=== PATIENT | male | born 1945 | race Caucasian/White ===

== ENCOUNTER 2017-07-14 20:07 | Emergency (ER) | payer MEDICARE, SELFPAY ==
--- NOTE | 2017-07-14 20:28 | XR_ITS ---
XR tibia fibula LT 2V Ordering Physician: Bill Lora Patient Age: 71 years: Male HISTORY: ITS.REASON: FALL TECHNIQUE: AP and lateral left lower leg COMPARISON :Left ankle from today . No previous studies otherwise prior to today FINDINGS The lateral displacement displacement of distal lateral and medial malleolus fracture components again noted at the ankle. Lateral displacement talus. Oblique fracture distal fibula with a transverse fracture base of medial malleolus. Spurring at the calcaneus again noted with progression of the spurring at the Achilles tendon The tibial shaft and fibular shaft appear intact. There is some mild irregularity at the tibial tubercle which likely reflects an old changes at the tendon insertion. Scattered vascular clips at the posterior, medial calf likely reflecting previous vein harvesting procedure. 2 views of the knee are included and unremarkable IMPRESSION The fractures at the ankle are again noted as previously discussed. Otherwise remainder the tibia and fibula are intact with no acute findings.
--- NOTE | 2017-07-14 20:28 | XR_ITS ---
XR foot LT min 3V, XR ankle LT min 3V Patient Age: 71 years: Male HISTORY: ITS.REASON: FALLpain swelling ankle fracture TECHNIQUE: Left foot 3 views left foot Left ankle 3 views left ankle COMPARISON :None ===== LEFT ANKLE 3 views. Lateral malleolus fracture..: Oblique fracture is seen at the distal fibula. It extends through the metaphysis into the ankle joint.L. There is 6 mm lateral displacement of the distal fibular fracture fragment, with lateral displacement of the talus at the ankle mortise, accompanied this lateral malleolar fracture fragment. Slight widening the medial joint space. Lateral projection demonstrates the oblique nature of this distal fibular fracture as it passing inferiorly exiting the anterior aspect of the distal fibula on the lateral view. But Medial malleolus fracture.: .. Transverse slightly oblique fracture through base of medial malleolus, with over 5 mm lateral displacement of this fracture fragment noted as well. On AP view. Slight irregularity at the posterior malleolus compared to previous os calcis exam March 2010which could reflect a very minor mild nondisplaced fracture here posterior margin of tibia. Prominent soft tissue swelling about the ankle both medial & lateral. The dome of the talus remains intact. IMPRESSION left ankle: 1. Bimalleolar fracture . .. Lateral subluxation of talus and ankle mortise due to this Eversion injury.. ... The distal fragment at lateral malleolus as well as medial malleolus are displaced laterally, & accompanied the talus laterally.. 2. Question Possible minor trimalleolar component to this ankle fracture Question, suggest a minor undisplaced fracture along posterior margin of the posterior malleolus ====== LEFT FOOT 3 VIEWS.----- tarsals and metatarsals intact. No fracture at the mid or forefoot . Toes intact. Bones well mineralized. Minor hypertrophic changes at the medial aspect first MTP joint. Plantar calcaneal spur 10 mm length. Irregular spurring & calcification has progressed since 2009 at the at the insertion Achilles tendon . IMPRESSION left foot: Ankle fractures again noted as discussed above. Otherwise left Mid, & forefoot appear intact.. Progressive calcification is present insertion of Achilles tendon since 2009
[2017-07-14 20:32] VITALS: BP 149/72; PULSE 71; RESP 20; TEMP 36.5; O2SAT 97; BMI 34.4
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
[2017-07-14 21:22] VITALS: BP 135/78; PULSE 75; RESP 18; TEMP 36.6
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
== END 2017-07-14 21:29 | disposition home or self-care (01) ==
LOC: ER 20:20 → UTC 20:20
PROVIDERS: Emergency Provider Nurse Practitioner Family; PCP Internal Medicine
DX: S82.842A Displaced bimalleolar fracture of left lower leg, initial encounter for closed fracture (principal); S82.891A Other fracture of right lower leg, initial encounter for closed fracture; W00.0XXA Fall on same level due to ice and snow, initial encounter; Y92.89 Other specified places as the place of occurrence of the external cause; I25.10 Atherosclerotic heart disease of native coronary artery without angina pectoris; E78.5 Hyperlipidemia, unspecified; I10 Essential (primary) hypertension; Z95.1 Presence of aortocoronary bypass graft
CPT/HCPCS: 29515 ×2; G0463; 73590; 73610; 73630; 99203

== ENCOUNTER → 2017-07-16 10:57 | Outpatient (CLI) | payer MEDICARE, SELFPAY ==
[2017-07-16 11:19] LABS: Basophils % 0.3 % (0.1-2.0); Eosinophils # 0.1 K/mm3 (0.0-0.4); Eosinophils % 1.5 % (0.1-12.0); Hematocrit 40.3 % (42.0-52.0); Hemoglobin 12.8 g/dL (14.1-18.0); Lymphocytes # 1.2 K/mm3 (0.7-4.5); Lymphocytes % 14.3 K/mm3 (10-50); Mean Corpuscular HGB Conc 31.8 g/dL (31.8-35.4); Mean Corpuscular Hemoglobin 27.5 pg (27.0-31.2); Mean Corpuscular Volume 86.6 fl (80-94); Mean Platelet Volume 7.9 fl (7.4-10.4); Monocytes # 0.9 K/mm3 (0.1-1.0); Monocytes % 10.1 % (1.7-9.3); Neutrophils # 6.3 K/mm3 (1.8-7.8); Neutrophils % 73.7 % (37.0-80.0); Platelet Count 199 K/mm3 (142-424); Red Blood Count 4.65 M/mm3 (4.60-6.20); Red Cell Distribution Width 13.2 % (11.5-17.5); White Blood Count 8.5 K/mm3 (4.8-10.8)
--- NOTE | 2017-07-16 11:20 | XR_ITS ---
XR chest 2V HISTORY: Shortness breath ITS.REASON: PRIOR HEART CATH PT,SHORT OF BREATH,PRE-OP ORDERING PHYSICIAN: Bayron Chowdary MD PATIENT AGE: 71 years COMPARISON: None available FINDINGS: Prior CABG. Normal heart size. Old granulomatous disease. No lobar consolidation or collapse. No evidence of CHF. 5 mm nodular opacity is noted in the left lung base possibly related to a nipple shadow and may be confirmed with follow-up. No acute bony anomalies. IMPRESSION: Prior CABG, no acute finding. Possible nipple shadow left lung base versus nodule. Follow-up recommended
[2017-07-16 12:36] LABS: Anion Gap 12.6 mEq/L (5-15); Blood Urea Nitrogen 9 mg/dL (7-18); Carbon Dioxide 27 mmol/L (21.0-32.0); Chloride 107 mmol/L (98-107); Creatinine,Serum 0.73 mg/dL (0.70-1.30); Estimated Glomerular Filt Rate 106 ml/min (>60); GFR (African American) 128 ML/MIN (>60); Glucose 196 mg/dL (74-106); Potassium 3.6 mmoL/L (3.5-5.1); Sodium 143 mmol/L (136-145)
== END ==
PROVIDERS: PCP Internal Medicine; Visit Provider Orthopaedic Surgery
DX: S82.891A Other fracture of right lower leg, initial encounter for closed fracture (principal); S82.892A Other fracture of left lower leg, initial encounter for closed fracture; Z01.818 Encounter for other preprocedural examination
CPT/HCPCS: 36415; 71046; 80048; 85025; 93005

== ENCOUNTER 2017-07-22 08:19 | Observation (INO) | payer MEDICARE, SELFPAY ==
[2017-07-16 12:15] VITALS: BMI 33.7
[2017-07-22] VITALS (25 sets, daily range): BP systolic 113–144; BP diastolic 55–84; PULSE 73–86; RESP 18–20; TEMP 36.7–43; O2SAT 94–99; BMI 33.7
--- NOTE | 2017-07-22 | XR_ITS ---
XR ankle LT 2V HISTORY: ITS.REASON: ORIF OF LT ANKLE ORDERING PHYSICIAN: Bayron Chowdary MD PATIENT AGE: 71 years Fluoroscopy time: 57 seconds COMPARISON: None FINDINGS: Multiple images submitted the C-arm shows interval placement of fibular bone plate and 2 screws within the medial malleolus are fracture fragment with good alignment of the orthopedic hardware and fracture fragments. IMPRESSION: Status post ORIF bimalleolar fracture with good alignment
[2017-07-22 09:05] LABS: POC Glucose,Bedside 190 mg/dL
--- NOTE | 2017-07-22 09:14 | P.PN_ITS ---
[facility] Anesthesia Checklist - Patient Identification Patient Identification: Arm Band, Verbal (Name & ) - Structural Data Admitted From: Home Planned Operative Procedure/s: orif left ankle Consent for Planned Operative Procedure(s) Verified: Yes Verified Documents: Surgical Consent - NPO Status Verified Time NPO: 00:00 - Chart Verification Results Verified: CBC, BMP - Additional verifications Patient : No Anesthesia Reactions: No Hx Blood Transfusions: No Blood Transfusion Reaction: No Cephalosporin Allergy: No Previous Colonoscopy: No - Cardiovascular Assessment Heart Sounds: S1 & S2 Pulse Strength: Baseline Pulse Rhythm: Regular Peripheral Edema: No - Airway Assessment C-Spine Mobility Assessed: Yes TMJ Mobility Assessed: Yes Dentition: Edentulous - Neurological Assessment Level of Consciousness: Awake, Alert, Appropriate Hx Seizures: No Numbness or tingling in extremities: No - Anesthesia Plan Anesthesia Risk discussed: Yes ASA Class: III Anesthesia Type: General [facility] Anesthesia HX I have reviewed the patient's past medical history: Yes Medical History: Reports:: Coronary Artery Disease, Diabetes Mellitus Type 2 ( on meds), Gastroesophageal Reflux Disease(GERD), Hyperlipidemia, Hypertension Denies:: Cancer, Diabetes Mellitus Type 1, Internal Pacemaker, MRSA, Seizures Other Medical History: Denies: Blood Transfusion Reaction Laterality Cases: Bilateral: Other Other Surgeries: Yes: Other (cabg x2 2004). No: Pacemaker Amputation: No Fractures: No *Family Hx:: Cancer, Heart Attack, Hyperlipidemia, Hypertension
--- NOTE | 2017-07-22 12:33 | P.PN_ITS ---
[facility] Anesthesia Record Part I Intake, IV Amount: 700 Estimated blood loss (mL): 25 Urine output (mL): 0 Blood Products used (#): none Blood Pressure: 131/79 SaO2: 94 Pulse Rate: 80 Respiratory Rate: 18 Temperature: 98.0 F Patient is:: Drowsy, Stable Stable to PACU at:: 12:26
--- NOTE | 2017-07-22 12:35 | P.PN_ITS ---
[facility] Anesthesia Record Part II Discharge Time: 12:56 Destination: Medical Surgical Department PACU nurse assessment reviewed?: Yes Patient Condition:: Good Anesthesia Complications:: None
--- NOTE | 2017-07-22 12:53 | XR_ITS ---
XR ankle LT min 3V HISTORY: Follow-up ORIF/fracture ITS.REASON: Post op ORDERING PHYSICIAN: Bayron Chowdary MD PATIENT AGE: 71 years COMPARISON: 2 4 18 FINDINGS: Study is obtained through a cast. There is been interval ORIF of the distal fibular fracture and the medial malleolus fracture with good alignment of the fracture fragments. A bone plate is present at the distal fibula with multiple screws. 2 screws stabilize a medial malleolus fracture. IMPRESSION: Good alignment status post ORIF distal fibular and medial malleolus fracture
[2017-07-23] VITALS: BP 123/61; PULSE 76; RESP 18; TEMP 36.9; O2SAT 96
--- NOTE | 2017-07-23 03:32 | PC.NURSE ---
LAYING IN BED RESTING WITH SPOUSE AT SIDE. HAS REST WELL MOST OF SHIFT. LEFT LEG ELEVATED ON 2 PILLOWS. HAS BEEN UP TO BEDSIDE TOILET. USED WALKER TO HELP STEADY. TOLERATED WELL. HAS HAD PAIN MEDICATION 1 TIME. RESP EVEN AND NONLABORED. LUNGS ARE CLEAR. BOWEL SOUNDS ACTIVE X 4. IV IS PATENT. AFEBRILE, BED LOCKED IN LOW POSITION, SIDERALES UP X 2, CALL [place] WITHIN REACH. WILL CONTINUE TO MONITOR.
[2017-07-23 04:00] VITALS: BP 129/68; PULSE 70; RESP 18; TEMP 36.9; O2SAT 93
--- NOTE | 2017-07-23 07:28 | P.CONPHA_ITS ---
[facility] Pharmacy VTE Monitoring - Patient Demographics Admission date: 07/22/17 Report Date: 07/23/17 Time: 07:27 Allergies/Adverse Reactions: Patient Allergies venom-wasp Allergy (Unknown, Verified 07/22/17 15:42) ALLERGY Bumble Bee Allergy (Mild, Uncoded 07/22/17 15:42) ALLERGY Height: 1.78 m Weight: 106.594 kg - VTE Risk Was VTE Risk Assessment Performed: Yes VTE Score: 5 VTE Risk Level: Low Risk Clinical Trial Participant: No - Prophylaxis VTE Prophylaxis Ordered?: Yes Types of VTE Prophylaxis: TEDS Knee High
[2017-07-23 08:00] VITALS: BP 100/50; PULSE 86; RESP 18; TEMP 36.8; O2SAT 94
--- NOTE | 2017-07-23 08:17 | PC.NURSE ---
tube feed given to pt. residual checked and had 20cc of gastric content. pt was able to feed self with nurse measuring out the feed and water for him.
--- NOTE | 2017-07-23 09:00 | HMH.PTEV ---
Physical Therapy Evaluation Rehab PT IP Evaluation Start: 07/22/17 13:11 Freq: ONCE Status: Active Protocol: Document 07/23/17 08:56 JENN (Rec: 07/23/17 09:00 JENN [id number]) Subjective/History History History This is the initial Physical THerapy evaluation for Mima Kumar. Pt is a 71 y/o male admitted to [facility] s/p L ankle fx w/ ORIF. Subjective Subjective Pt rpeorts no complaints, wishes to return home Rehab PT IP Eval Objective Appearance Patient Behavior Appropriate Patient Orientation Person Place Time Month Difficulty following instructions none Speech Pattern Clear Ambulation Patient Able to Ambulate Yes Ambulation Observation IP General Gait Pattern Observation Decrease Weight Bear (L) Ambulation Distance (feet) 3 Ambulation Assistive Device Rolling Walker Balance Ability to Arise Able, uses arms to help Sitting Balance Steady, safe Standing Balance Steady, wide stance Dynamic Sitting Balance Ability Normal Dynamic Standing Balance Ability Fair Transfers Bed Transfer Ability Independent Chair Transfer Ability Supervision/Stand by Sit to Stand Bed Transfer Ability Supervision/Stand by Sit to Stand Chair Transfer Ability Supervision/Stand by ROM All Extremities PT ROM Status WFL Abnormal ROM Comment L ankle casted MMT All Extremities PT MMT WFL Abnormal MMT Grade unable to test L ankle/foot Rehab PT IP prob,goals,plan Problems Date of Evaluation: 07/23/17 PT IP Problems Self care Rehab Potential Rehab Potential Innapropriate for Skilled Therapy Discharge Plan PT Discharge Plan Pt to return home s/p LOS G -code Required Yes Eval Complexity Eval Charge Codes 12877 - Low Complexity G Codes PT Current Status Mobility PT Current Status Modifier CJ-At least 20% but less than 40% impaired, limited or restricted PT Goal Status Mobility PT Goal Status Modifer CJ-At least 20% but less than 40% impaired, limited or restricted PHYSICIAN CERTIFICATION: I certify the specified therapy services for Mima Kumar JR are required, authorized, and reviewed every 30 days.
--- NOTE | 2017-07-23 09:21 | HMH.DCSUM ---
General - General Admission date: 07/22/17 Discharge date: 07/23/17 HPI HPI: The patient is a 71-year-old gentleman who incurred a trimalleolar ankle fracture or full days ago. He is taken to the operating room for open reduction internal fixation of both the medial and lateral malleolus. The posterior malleolar fragment was small and reduced appropriately and was not felt to need fixation. The patient's postoperative course was unremarkable. At the time of discharge, he was partaking of regular diet without difficulty and he was seen by physical therapy and instructed in touchdown weightbearing technique. At time of discharge, the patient was adequately controlled on oral analgesics. He was able to demonstrate appropriate touchdown weightbearing technique and understood the need to elevate his foot. He is to resume his normal preoperative medications. He has been given a prescription for Lortab 5/325 #30. He may take 1 or 2 tablets every 4-6 hours as needed for pain. We will plan on seeing him back in approximately 2 weeks for x-rays, staple removal, and placement in a short leg cast. Explained the expected postoperative course to the patient. Both he and his demonstrate excellent understanding. Objective Vital signs: Temp Pulse Resp BP Pulse Ox 98.3 F 86 18 100/50 94 L 07/23/17 08:00 07/23/17 08:00 07/23/17 08:00 07/23/17 08:00 07/23/17 08:00 Narrative: This is sensate to light touch in all toes. Capillary refill less than 2 seconds. Pedal pulses not able to be assessed secondary to access. No complications evident. Postoperative x-rays reviewed by me personally and show appropriate hardware position and fixation of the fracture. Hospital Course Hospital Course: Satisfactory. Please see narrative Meds Home Medications Medication Instructions Recorded Confirmed Type Atorvastatin Calcium [Atorvastatin 80 mg PO DAILY 07/14/17 07/22/17 History 80mg Tab] Glimepiride [Amaryl 2mg tablet] 2 mg PO DAILY 07/14/17 07/22/17 History Ramipril [Altace 5mg capsule] 5 mg PO DAILY 07/14/17 07/22/17 History aspirin 325 mg tablet 650 mg PO DAILY tab 07/16/17 07/22/17 History linagliptin 5 mg tablet 5 mg PO DAILY tab 07/16/17 07/22/17 History Esomeprazole Magnesium [Nexium 20 mg PO DAILY 07/22/17 07/22/17 History 24Hr] Metoprolol Tartrate [Lopressor 25 mg PO BID 07/22/17 07/22/17 History 25mg tablet] Allergies Allergy/AdvReac Type Severity Reaction Status Date / Time venom-wasp Allergy Unknown ALLERGY Verified 07/22/17 15:42 Bumble Bee Allergy Mild ALLERGY Uncoded 07/22/17 15:42 Discharge Plan - Patient Discharge Instructions ACTIVITY: Continue current activity DIET: continue same diet Patient Instructions: DI for Ankle Fracture, DI for Surgical Site Infection - Follow up Plan Follow up with: Bayron Chowdary MD [Staff Physician] - 2 weeks Disposition: Home, Self-Shelter Medications: Home Medications Medication Instructions Recorded Confirmed Type Atorvastatin Calcium [Atorvastatin 80 mg PO DAILY 07/14/17 07/22/17 History 80mg Tab] Glimepiride [Amaryl 2mg tablet] 2 mg PO DAILY 07/14/17 07/22/17 History Ramipril [Altace 5mg capsule] 5 mg PO DAILY 07/14/17 07/22/17 History aspirin 325 mg tablet 650 mg PO DAILY tab 07/16/17 07/22/17 History linagliptin 5 mg tablet 5 mg PO DAILY tab 07/16/17 07/22/17 History Esomeprazole Magnesium [Nexium 20 mg PO DAILY 07/22/17 07/22/17 History 24Hr] Metoprolol Tartrate [Lopressor 25 mg PO BID 07/22/17 07/22/17 History 25mg tablet] Prescriptions/Medication Reconciliation: New Hydrocod/Acet 5/325 mg [[place] 5/325mg tablet] 1 - 2 tab PO Q4HP PRN #30 tab PRN Reason: Severe Pain Continue linagliptin 5 mg tablet 5 mg PO DAILY tab aspirin 325 mg tablet 650 mg PO DAILY tab Glimepiride [Amaryl 2mg tablet] 2 mg PO DAILY Atorvastatin Calcium [Atorvastatin 80mg Tab] 80 mg PO DAILY Eso
--- NOTE | 2017-07-23 09:27 | P.DS_ITS ---
General - General Admission date: 07/22/17 Discharge date: 07/23/17 HPI HPI: The patient is a 71-year-old gentleman who incurred a trimalleolar ankle fracture or full days ago. He is taken to the operating room for open reduction internal fixation of both the medial and lateral malleolus. The posterior malleolar fragment was small and reduced appropriately and was not felt to need fixation. The patient's postoperative course was unremarkable. At the time of discharge, he was partaking of regular diet without difficulty and he was seen by physical therapy and instructed in touchdown weightbearing technique. At time of discharge, the patient was adequately controlled on oral analgesics. He was able to demonstrate appropriate touchdown weightbearing technique and understood the need to elevate his foot. He is to resume his normal preoperative medications. He has been given a prescription for Lortab 5/ 325 #30. He may take 1 or 2 tablets every 4-6 hours as needed for pain. We will plan on seeing him back in approximately 2 weeks for x-rays, staple removal , and placement in a short leg cast. Explained the expected postoperative course to the patient. Both he and his demonstrate excellent understanding. Objective Vital signs: Temp Pulse Resp BP Pulse Ox 98.3 F 86 18 100/50 94 L 07/23/17 08:00 07/23/17 08:00 07/23/17 08:00 07/23/17 08:00 07/23/17 08:00 Narrative: This is sensate to light touch in all toes. Capillary refill less than 2 seconds. Pedal pulses not able to be assessed secondary to access. No complications evident. Postoperative x-rays reviewed by me personally and show appropriate hardware position and fixation of the fracture. Hospital Course Hospital Course: Satisfactory. Please see narrative Meds Home Medications Medication Instructions Recorded Confirmed Type Atorvastatin Calcium [Atorvastatin 80 mg PO DAILY 07/14/17 07/22/17 History 80mg Tab] Glimepiride [Amaryl 2mg tablet] 2 mg PO DAILY 07/14/17 07/22/17 History Ramipril [Altace 5mg capsule] 5 mg PO DAILY 07/14/17 07/22/17 History aspirin 325 mg tablet 650 mg PO DAILY tab 07/16/17 07/22/17 History linagliptin 5 mg tablet 5 mg PO DAILY tab 07/16/17 07/22/17 History Esomeprazole Magnesium [Nexium 20 mg PO DAILY 07/22/17 07/22/17 History 24Hr] Metoprolol Tartrate [Lopressor 25 mg PO BID 07/22/17 07/22/17 History 25mg tablet] Allergies Allergy/AdvReac Type Severity Reaction Status Date / Time venom-wasp Allergy Unknown ALLERGY Verified 07/22/17 15:42 Bumble Bee Allergy Mild ALLERGY Uncoded 07/22/17 15:42 Discharge Plan - Patient Discharge Instructions ACTIVITY: Continue current activity DIET: continue same diet Patient Instructions: DI for Ankle Fracture, DI for Surgical Site Infection - Follow up Plan Follow up with: Bayron Chowdary MD [Staff Physician] - 2 weeks Disposition: Home, Self-Halfway Medications: Home Medications Medication Instructions Recorded Confirmed Type Atorvastatin Calcium [Atorvastatin 80 mg PO DAILY 07/14/17 07/22/17 History 80mg Tab] Glimepiride [Amaryl 2mg tablet] 2 mg PO DAILY 07/14/17 07/22/17 History Ramipril [Altace 5mg capsule] 5 mg PO DAILY 07/14/17 07/22/17 History aspirin 325 mg tablet 650 mg PO DAILY tab 07/16/17 07/22/17 History linagliptin 5 mg tablet 5 mg PO DAILY tab 07/16/17 07/22/17 History
--- NOTE | 2017-07-23 11:15 | HMH.OPNOTE ---
Date of procedure: 07/22/17 Pre-op Diagnosis:: Bimalleolar ankle fracture, left Diabetes mellitus Coronary artery disease Post-op diagnosis:: other (TRImalleolar ankle fracture, left) Procedure performed:: Open reduction internal fixation left ankle fracture Surgeon:: Bayron Chowdary MD BUSINESS ADVISOR:: Other Anesthesia: other Estimated blood loss (mL): 5 Operative findings:: The patient was taken to the operating room and given a general anesthetic. The left leg was prepped and draped in the usual sterile fashion. A well-padded calf tourniquet was applied and the limb exsanguinated and the tourniquet inflated to 250 torr. An incision was made directly over the fibula and careful dissection undertaken to reveal the fracture site. The periosteum was reflected minimally. Strict AO technique was utilized at all times. The fracture site was gently spread apart using a freer elevator and a curette used to evacuate the fracture hematoma and bone fragments. Irrigation was used and then a set of fracture reduction clamps used to hold the reduction. C-arm fluoroscopy was utilized to assist with ensuring appropriate reduction and hardware placement. An oil well service unit operator incision was made for placement of an interfragmentary screw. This was overdrilled with a 2.7 drill bit followed by 2.0 mm drill bit and a fully threaded cortical 2.7 millimeter screw placed in interfragmentary fashion. We then placed a Mu precontoured VariAx titanium plate laterally and secured it using distal locking screws and proximal nonlocking screws. This resulted in an anatomic reduction. We confirmed appropriate placement and then proceeded to address the medial aspect. Because of soft tissue contusions and abrasions, we considered performing this is a percutaneous fixation however could not achieve a satisfactory reduction. We then opened using a curvilinear approach. We carefully dissected down, spread the fracture, irrigated, inspected the talus, and reduce the fragments. We held these with the tenaculum and then placed 2 threaded guide pins in preparation for placement of 4.5 mm cannulated screws. We selected the larger screws secondary to the size of the fragment. With the fragment secured by the clamp and the 2 wires, we overdrilled one wire and placed a partially threaded cannulated 4.5 mm cancellus screw. We then drilled over the other wire and placed another screw in similar fashion. We then sequentially tightened the screws down to achieve essentially an anatomic reduction. We then checked with C arm to confirm appropriate placement of all hardware and reduction of the mortise. The mortise was intact to stress testing and no syndesmosis disruption was found. We then irrigated all wounds closed the periosteum with 2-0 Vicryl, the subcutaneous tissues with 2-0 Vicryl, and the skin with cass. The tourniquet was deflated and dressings applied. The patient was placed in a well-padded Edy Smith type splint taken to the recovery room in satisfactory condition. Operative note:: See above operative note Condition: stable Disposition: PACU Complications:: No complications
--- NOTE | 2017-07-23 13:03 | P.OP_ITS ---
Date of procedure: 07/22/17 Pre-op Diagnosis:: Bimalleolar ankle fracture, left Diabetes mellitus Coronary artery disease Post-op diagnosis:: other (TRImalleolar ankle fracture, left) Procedure performed:: Open reduction internal fixation left ankle fracture Surgeon:: Bayron Chowdary MD OUTSIDE PLANT ENGINEER:: Other Anesthesia: other Estimated blood loss (mL): 5 Operative findings:: The patient was taken to the operating room and given a general anesthetic. The left leg was prepped and draped in the usual sterile fashion. A well- padded calf tourniquet was applied and the limb exsanguinated and the tourniquet inflated to 250 torr. An incision was made directly over the fibula and careful dissection undertaken to reveal the fracture site. The periosteum was reflected minimally. Strict AO technique was utilized at all times. The fracture site was gently spread apart using a freer elevator and a curette used to evacuate the fracture hematoma and bone fragments. Irrigation was used and then a set of fracture reduction clamps used to hold the reduction. C-arm fluoroscopy was utilized to assist with ensuring appropriate reduction and hardware placement. An electroplating worker incision was made for placement of an interfragmentary screw. This was overdrilled with a 2.7 drill bit followed by 2.0 mm drill bit and a fully threaded cortical 2.7 millimeter screw placed in interfragmentary fashion. We then placed a Mu precontoured VariAx titanium plate laterally and secured it using distal locking screws and proximal nonlocking screws. This resulted in an anatomic reduction. We confirmed appropriate placement and then proceeded to address the medial aspect. Because of soft tissue contusions and abrasions, we considered performing this is a percutaneous fixation however could not achieve a satisfactory reduction. We then opened using a curvilinear approach. We carefully dissected down, spread the fracture, irrigated, inspected the talus, and reduce the fragments. We held these with the tenaculum and then placed 2 threaded guide pins in preparation for placement of 4.5 mm cannulated screws. We selected the larger screws secondary to the size of the fragment. With the fragment secured by the clamp and the 2 wires, we overdrilled one wire and placed a partially threaded cannulated 4.5 mm cancellus screw. We then drilled over the other wire and placed another screw in similar fashion. We then sequentially tightened the screws down to achieve essentially an anatomic reduction. We then checked with C arm to confirm appropriate placement of all hardware and reduction of the mortise. The mortise was intact to stress testing and no syndesmosis disruption was found. We then irrigated all wounds closed the periosteum with 2-0 Vicryl, the subcutaneous tissues with 2-0 Vicryl , and the skin with cass. The tourniquet was deflated and dressings applied. The patient was placed in a well-padded Edy Smith type splint taken to the recovery room in satisfactory condition. Operative note:: See above operative note Condition: stable Disposition: PACU Complications:: No complications
== END 2017-07-23 11:49 | disposition home or self-care (01) ==
LOC: ICU 09:12 → 2ND 14:34
PROVIDERS: Admitting Provider Orthopaedic Surgery; PCP Internal Medicine; Visit Provider Orthopaedic Surgery
PROC: (CPT 27822; principal; 2017-07-22 10:00)
DX: S82.852A Displaced trimalleolar fracture of left lower leg, initial encounter for closed fracture (principal); X58.XXXA Exposure to other specified factors, initial encounter; I25.10 Atherosclerotic heart disease of native coronary artery without angina pectoris; E11.9 Type 2 diabetes mellitus without complications; E78.5 Hyperlipidemia, unspecified; I10 Essential (primary) hypertension; Z95.1 Presence of aortocoronary bypass graft; Z91.030 Bee allergy status; Z80.9 Family history of malignant neoplasm, unspecified; Z82.49 Family history of ischemic heart disease and other diseases of the circulatory system; Z83.49 Family history of other endocrine, nutritional and metabolic diseases; Z23 Encounter for immunization; Z79.84 Long term (current) use of oral hypoglycemic drugs; Z79.82 Long term (current) use of aspirin; Z79.899 Other long term (current) drug therapy
CPT/HCPCS: 27822; 73600; 73610; 76000; 82962; 90732; 96374; 97161; C1713; C1776; G0009; G0378; J0131; J2405

== ENCOUNTER → 2017-08-06 16:35 | Outpatient (CLI) | payer MEDICARE, SELFPAY ==
--- NOTE | 2017-08-06 16:53 | XR_ITS ---
XR ankle LT min 3V HISTORY: Follow-up fracture/ORIF ITS.REASON: Left ankle fracture ORDERING PHYSICIAN: Bayron Chowdary MD PATIENT AGE: 71 years COMPARISON: 07/22/2017 FINDINGS: There remains good alignment in the medial malleoli are in distal fibular fracture with a bone plate over the distal fibula and 2 screws within the medial malleolus. Study is obtained through a splint. IMPRESSION: Good alignment status post ORIF distal tib-fib fracture.
== END ==
PROVIDERS: PCP Internal Medicine; Visit Provider Orthopaedic Surgery
DX: Z47.89 Encounter for other orthopedic aftercare (principal); S82.892A Other fracture of left lower leg, initial encounter for closed fracture
CPT/HCPCS: 73610

== ENCOUNTER → 2017-08-22 08:39 | Outpatient (CLI) | payer MEDICARE, SELFPAY ==
--- NOTE | 2017-08-22 08:41 | XR_ITS ---
XR ankle LT min 3V HISTORY: Follow-up fracture ITS.REASON: Post op LT ankle ORIF for fracture ORDERING PHYSICIAN: Bayron Chowdary MD PATIENT AGE: 71 years COMPARISON: 08/06/2017 FINDINGS: No change status post ORIF of fibular fracture and medial malleolus fracture with bone plate of the distal fibula and 2 screws within the medial malleolus. There is good alignment of the fracture fragments. Fracture lines are not well delineated. IMPRESSION: Good alignment status post ORIF tib-fib fracture
== END ==
PROVIDERS: PCP Internal Medicine; Visit Provider Orthopaedic Surgery
DX: Z48.89 Encounter for other specified surgical aftercare (principal)
CPT/HCPCS: 73610

== ENCOUNTER → 2017-09-19 08:37 | Outpatient (CLI) | payer MEDICARE, SELFPAY ==
--- NOTE | 2017-09-19 08:40 | XR_ITS ---
XR ankle LT min 3V HISTORY: ITS.REASON: S/P LT ankle ORIF ORDERING PHYSICIAN: Bayron Chowdary MD PATIENT AGE: 71 years COMPARISON: 08/22/2017 FINDINGS: Status post ORIF distal tibial and fibular fracture with good alignment. 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 This is at the epiphyseal remnant. Bony resorption from a nondisplaced fractures also a consideration. There does remain in good alignment. IMPRESSION: 1. Prior ORIF distal tibia and fibular fracture as described above with good alignment. 2. 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
== END ==
PROVIDERS: PCP Internal Medicine; Visit Provider Orthopaedic Surgery
DX: Z48.89 Encounter for other specified surgical aftercare (principal)
CPT/HCPCS: 73610

== ENCOUNTER 2017-09-19 10:00 | Outpatient (RCR) | payer MEDICARE, SELFPAY ==
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
--- NOTE | 2017-09-10 10:50 | HMH.RHREAS ---
Rehab Reassessment Rehab OP Re-assessment Start: 09/10/17 10:40 Freq: Status: Active Protocol: Document 09/10/17 10:46 LUCILA (Rec: 09/10/17 10:50 LUCILA [id number]) Electronically Signed By Collin Carter, PT 09/10/17 10:46 Rehab Re-assessment Subjective Subjective OPt reports much les swellingin the left LE and less pain overall. Objective Objective Notes Pain: 4/10 Edema: 1+ pitting edema remain in left lower leg. Assessment Progress Assessment Progressing as Expected Patient goals met ST,2,3,4 LT Goals Not Met ST LT,2,3,4 Revised Goals none Plan Plan Continue per initial POC. Frequency of Therapy 2x/wk Duration of therapy 8 wks PHYSICIAN CERTIFICATION: I certify the specified therapy services for Mima Lealblaine HERRERA are required, authorized, and reviewed every 30 days.
== END 2017-09-19 10:01 | disposition home or self-care (01) ==
LOC: PT 10:00
PROVIDERS: PCP Internal Medicine; Visit Provider Orthopaedic Surgery
DX: S82.892A Other fracture of left lower leg, initial encounter for closed fracture (principal); Z47.89 Encounter for other orthopedic aftercare
CPT/HCPCS: 97110; 97140; 97162; 97164; 97760

== ENCOUNTER → 2017-10-24 09:35 | Outpatient (CLI) | payer MEDICARE, SELFPAY ==
--- NOTE | 2017-10-24 09:37 | XR_ITS ---
XR ankle LT min 3V HISTORY: Follow-up surgery ITS.REASON: 12 week post op LEFT ankle ORIF. ORDERING PHYSICIAN: Bayron Chowdary MD PATIENT AGE: 71 years COMPARISON: 09/19/2017 FINDINGS: Distal fibular lateral bone plate once again noted. 2 screws within the medial malleolus region also present. Lucency is once again noted at the metaphyseal diaphyseal junction of the distal tibia not significant change. There remains good alignment of the distal fibular and medial malleolus fracture fragments. IMPRESSION: Overall no change in good alignment status post ORIF tib-fib fractures with persistent transverse zone of lucency of the distal tibia.
== END ==
PROVIDERS: PCP Internal Medicine; Visit Provider Orthopaedic Surgery
DX: Z48.89 Encounter for other specified surgical aftercare (principal)
CPT/HCPCS: 73610

== ENCOUNTER → 2020-07-08 11:27 | Outpatient (CLI) | payer MEDICARE, SELFPAY ==
[2020-07-08 12:44] LABS: Hemoglobin A1C 9.7 % (4.0-6.0)
== END ==
PROVIDERS: Visit Provider Internal Medicine
DX: E11.59 Type 2 diabetes mellitus with other circulatory complications (principal); Z79.84 Long term (current) use of oral hypoglycemic drugs
CPT/HCPCS: 36415; 83036

== ENCOUNTER → 2020-11-30 11:14 | Outpatient (CLI) | payer MEDICARE, SELFPAY ==
--- NOTE | 2020-11-30 11:20 | XR_ITS ---
PROCEDURE: XR CHEST 2V CLINICAL HISTORY: SHORTNESS OF AIR,WHEEZING COMPARISON: CR CXR2V XR chest 2V from 07/16/2017 FINDINGS: The cardiomediastinal silhouette and pulmonary vascularity are within normal limits. Sternal wire sutures and surgical clips are seen from previous CABG. The lungs are clear without infiltrates, suspicious nodules, or pleural effusions. No acute bony abnormalities. IMPRESSION: No acute findings. Dictated by: Dr. Anthony Verdugo MD 11/30/2020 11:38 Dr. Anthony Verdugo MD in [place] 11/30/2020 11:38
== END ==
PROVIDERS: PCP Internal Medicine; Visit Provider Internal Medicine
DX: R06.02 Shortness of breath (principal); R06.2 Wheezing
CPT/HCPCS: 71046

== ENCOUNTER → 2020-12-08 10:22 | Outpatient (CLI) | payer MEDICARE, SELFPAY ==
--- NOTE | 2020-12-08 10:27 | CA_ITS ---
APPROVED REPORT EXAM: Comprehensive 2D, Doppler, and color-flow Echocardiogram Mock Up Maker: Purvi Vega RVT Ht: 5 ft 10 in Wt: 235lbs BSA: 2.24 BP: 157/66 mmHg Indications: SOA,CAD,HTN,HLD,GERD 2D Dimensions LVOT 2.27 cm (M/F) 1.5-2.5 LA Volume 31.30 mL LA Volume Index 14.03 mL/m2 (M/F) 16-34 M-Mode Dimensions RVDd 2.77 cm (0.9-2.6) LA Diam 4.25 cm (1.9-4.0) LVDd 3.98 cm (3.5-5.7) Ao Diam 3.16 cm (2.0-3.7) LVDs 2.65 cm (3.5-5.7) IVSd 1.06 cm (0.6-1.1) PWd 1.10 cm (0.6-1.1) EF (Teich) 62.70% FS 33.40% EDV (Teich) 69.20 mL TAPSE 1.52 (<1.7) ESV (Teich) 25.80 mL LV Diastology E Decel Time 217.00 (160-240 msec) E/A Ratio 1.1 MED E' 8.80 (< 7 cm/sec) E'/MED E' Ratio 10.10 (>14) LAT E' 15.10 (<10 cm/sec) E/LAT E' Ratio 5.89 (>14) Aortic Valve AO Peak GR. 6.80 mmHg Mitral Valve MV E Max Ananth. 89.00 (40-130 cm/s) MV A Velocity 80.00 (40-130 cm/s) E/A Ratio 1.11 MV Decel. Time 217.00 (160-240 ms) MV PHT 63.00 ms Pulmonary Valve PV Peak Velocity 97.00 (50-150 cm/s) Tricuspid Valve TR P. Velocity 219.00 cm/s RAP Estimate 10.00 mmHg RVSP 29.10 mmHg Left Ventricle Left atrium is mildly enlarged, left ventricle is normal size, mild concentric left ventricular hypertrophy, visually estimated ejection fraction 55% with no regional wall motion abnormality, grade 1 diastolic dysfunction seen without tissue Doppler evidence of raise left atrial pressure. Right Ventricle Right atrium and right ventricle are mildly enlarged with normal contractility. Aortic Valve Aortic valve is minimally thickened and fibrosed, there is no aortic stenosis or aortic insufficiency. Mitral Valve Mitral valve grossly normal, there is trace mitral regurgitation. Tricuspid Valve Grossly normal, there is trace tricuspid regurgitation. Pulmonic Valve Pulmonic valve is poorly visualized. Great Vessels Aortic root is normal size. Pericardium No significant pericardial effusion noted. Conclusion 1. Normal left ventricular size, preserved left ventricular systolic function, visually estimated ejection fraction 55% with no regional wall motion abnormality, grade 1 diastolic dysfunction seen without tissue Doppler evidence of raise left atrial pressure. 2. Trace mitral and tricuspid regurgitation. 3. No significant pericardial effusion noted. Electronically signed by : Juanjo Wright, 12/08/2020 16:44:47
== END ==
PROVIDERS: PCP Internal Medicine; Visit Provider Internal Medicine
DX: R06.02 Shortness of breath (principal); R06.2 Wheezing; I10 Essential (primary) hypertension; I25.10 Atherosclerotic heart disease of native coronary artery without angina pectoris
CPT/HCPCS: 93306

== ENCOUNTER → 2020-12-23 09:33 | Outpatient (CLI) | payer MEDICARE, SELFPAY | PROVIDERS: PCP Internal Medicine; Visit Provider Internal Medicine | DX: R06.02 Shortness of breath (principal); R06.2 Wheezing; I10 Essential (primary) hypertension; I25.10 Atherosclerotic heart disease of native coronary artery without angina pectoris | CPT/HCPCS: 94060 ==

== ENCOUNTER → 2021-04-07 18:20 | Outpatient (CLI) | payer MEDICARE, SELFPAY ==
[2021-04-07 19:13] LABS: Basophils # 0.1 K/mm3 (0-0.2); Basophils % 1.3 % (0.1-2.0); Eosinophils # 0.3 K/mm3 (0.0-0.4); Eosinophils % 5.1 % (0.1-12.0); Hematocrit 45.2 % (42.0-52.0); Hemoglobin 14.5 g/dL (14.1-18.0); Lymphocytes # 1.4 K/mm3 (0.7-4.5); Lymphocytes % 22.2 % (10-50); Mean Corpuscular HGB Conc 32.1 g/dL (31.8-35.4); Mean Corpuscular Hemoglobin 29.2 pg (27.0-31.2); Mean Corpuscular Volume 91.1 fl (80-94); Mean Platelet Volume 9.4 fl (7.4-10.4); Monocytes # 0.7 K/mm3 (0.1-1.0); Monocytes % 11.6 % (1.7-9.3); Neutrophils # 3.8 K/mm3 (1.8-7.8); Neutrophils % 59.8 % (37.0-80.0); Platelet Count 276 K/mm3 (142-424); Red Blood Count 4.97 M/mm3 (4.60-6.20); Red Cell Distribution Width 13.8 % (11.5-17.5); White Blood Count 6.4 K/mm3 (4.8-10.8)
[2021-04-07 19:47] LABS: Alanine Aminotransferase 17 U/L (12-78); Albumin Level 3.7 g/dl (3.5-5.0); Albumin/Globulin Ratio 1.4 (1.1-1.8); Alkaline Phosphatase 63 U/L (38-126); Anion Gap 11.2 mEq/L (5-15); Aspartate Amino Transferase 24 U/L (17-59); Bilirubin,Total 0.5 mg/dl (0.2-1.3); Blood Urea Nitrogen 10 mg/dl (9-20); Carbon Dioxide 27 mmol/L (22.0-30.0); Chloride 105 mmol/L (98-107); Estimated Glomerular Filt Rate 131 ml/min (>60); GFR (African American) 159 ML/MIN (>60); Globulin 2.6 g/dL (1.3-3.2); Glucose 153 mg/dl (74-100); Potassium 4.2 mmoL/L (3.5-5.1); Sodium 139 mmol/L (136-145); Total Protein,Serum 6.3 g/dl (6.3-8.2)
[2021-04-07 20:16] LABS: Prostate Specific Ag Screen 0.9 ng/ml (0.0-4.0)
[2021-04-07 21:08] LABS: Chol/HDL Ratio 3.1 (1-3.5); Cholesterol 125 mg/dl (140-200); HDL Cholesterol 40 mg/dl (40-60); Triglycerides 126 mg/dl (30-150); VLDL Cholesterol 25 mg/dL (0-40)
[2021-04-07 21:19] LABS: Direct LDL Cholesterol 72.69 mg/dL (100-129)
== END ==
PROVIDERS: Visit Provider Internal Medicine
DX: I10 Essential (primary) hypertension (principal); I25.10 Atherosclerotic heart disease of native coronary artery without angina pectoris; E11.59 Type 2 diabetes mellitus with other circulatory complications; E78.5 Hyperlipidemia, unspecified; N40.1 Benign prostatic hyperplasia with lower urinary tract symptoms; Z12.5 Encounter for screening for malignant neoplasm of prostate; Z79.84 Long term (current) use of oral hypoglycemic drugs
CPT/HCPCS: 80053; 80061; 83036; 85025; G0103

== ENCOUNTER → 2021-08-02 12:10 | Outpatient (CLI) | payer MEDICARE, SELFPAY | PROVIDERS: Visit Provider Internal Medicine | DX: L97.921 Non-pressure chronic ulcer of unspecified part of left lower leg limited to breakdown of skin (principal); L08.9 Local infection of the skin and subcutaneous tissue, unspecified; B95.8 Unspecified staphylococcus as the cause of diseases classified elsewhere | CPT/HCPCS: 87070; 87077; 87186; 87205 ==

== ENCOUNTER → 2021-09-27 08:12 | Outpatient (CLI) | payer MEDICARE, SELFPAY ==
[2021-09-27 08:16] LABS: MANUAL DIFFERENTIAL MANUAL DIFFERENTIAL (MANUAL DIFF)
[2021-09-27 08:31] LABS: Basophils # 0.1 K/mm3 (0-0.2); Eosinophils # 0.4 K/mm3 (0.0-0.4); Eosinophils % 7.3 % (0.1-12.0); Hematocrit 42.1 % (42.0-52.0); Hemoglobin 13.5 g/dL (14.1-18.0); Lymphocytes # 1.3 K/mm3 (0.7-4.5); Lymphocytes % 22.1 % (10-50); Mean Corpuscular Hemoglobin 29.3 pg (27.0-31.2); Mean Corpuscular Volume 91.4 fl (80-94); Mean Platelet Volume 9.4 fl (7.4-10.4); Monocytes # 0.6 K/mm3 (0.1-1.0); Monocytes % 10.4 % (1.7-9.3); Neutrophils # 3.3 K/mm3 (1.8-7.8); Neutrophils % 58.3 % (37.0-80.0); Platelet Count 241 K/mm3 (142-424); Red Blood Count 4.61 M/mm3 (4.60-6.20); Red Cell Distribution Width 13.8 % (11.5-17.5); White Blood Count 5.7 K/mm3 (4.8-10.8)
[2021-09-27 09:44] LABS: Chloride 104 mmol/L (98-107); Sodium 136 mmol/L (136-145)
[2021-09-27 09:45] LABS: Potassium 3.8 mmoL/L (3.5-5.1)
[2021-09-27 09:48] LABS: Anion Gap 7.8 mEq/L (5-15); Blood Urea Nitrogen 11 mg/dl (9-20); Carbon Dioxide 28 mmol/L (22.0-30.0); Estimated Glomerular Filt Rate 94 ml/min (>60); GFR (African American) 114 ML/MIN (>60); Glucose 281 mg/dl (74-100)
[2021-09-27 10:00] LABS: Eosinophils % 1 % (0-3); Lymphocytes % 20 % (10-50); Monocytes % 10 % (2-9); Neutrophils % 69 % (42-76); Platelet Estimate Normal; RBC Morphology Normal; Total Cells Counted 100
== END ==
PROVIDERS: Visit Provider Urology
DX: N47.1 Phimosis (principal); Z01.812 Encounter for preprocedural laboratory examination; Z11.52 Encounter for screening for COVID-19; E11.9 Type 2 diabetes mellitus without complications; Z79.84 Long term (current) use of oral hypoglycemic drugs
CPT/HCPCS: 36415; 80048; 85007; 85014; 85018; 85048; 85049; C9803; U0003; U0005

== ENCOUNTER 2021-09-29 06:51 | Day surgery (SDC) | payer MEDICARE, SELFPAY ==
[2021-09-27 10:40] VITALS: BMI 34.4
[2021-09-29] VITALS (11 sets, daily range): BP systolic 115–145; BP diastolic 61–85; PULSE 53–68; RESP 16–18; TEMP 36.2–43; O2SAT 94–98
--- NOTE | 2021-09-29 07:53 | P.PN_ITS ---
[facility] Anesthesia Checklist - Patient Identification Patient Identification: Arm Band - Structural Data Admitted From: Home Planned Operative Procedure/s: Circumcision Consent for Planned Operative Procedure(s) Verified: Yes - NPO Status Verified Time NPO: 00:00 - Additional verifications Anesthesia Reactions: No Hx Blood Transfusions: No Blood Transfusion Reaction: No - Airway Assessment C-Spine Mobility Assessed: Yes TMJ Mobility Assessed: Yes Dentition: Edentulous - Neurological Assessment Level of Consciousness: Awake Hx Seizures: No Numbness or tingling in extremities: No - Anesthesia Plan Anesthesia Risk discussed: Yes Anesthesia Plan: Verified ASA Class: III Anesthesia Type: General [facility] History I have reviewed the patient's past medical history: Yes Medical History: Reports:: Asthma, Coronary Artery Disease, Diabetes Mellitus Type 2, Gastroesophageal Reflux Disease(GERD), Hyperlipidemia, Hypertension Denies:: Cancer, Diabetes Mellitus Type 1, Internal Pacemaker, MRSA, Seizures *Have you ever received a pneumonia vaccine?: No *Have you received a flu vaccine this season?: Yes Other Medical History: Denies: Blood Transfusion Reaction Anesthesia experience/problems:: None Laterality Cases: Bilateral: Other Other Surgeries: Yes: No Previous Surgery, Colonoscopy, Other. No: Pacemaker Amputation: No Fractures: Yes (l ankle) - *Social History Last grade of school completed: Some college Smoking Status: Former smoker Tobacco Type: cigarettes #Yrs smoked (if former smoker): 25 Alcohol Intake: never Alcohol Intake Frequency:: holidays/special occasions only Substance Use Type: denies use *Occupational Status:: employed Housing: house Household Members: spouse *Travel in the last 8 weeks: Inside the [facility] Family Hx:: Cancer, Heart Attack
--- NOTE | 2021-09-29 09:56 | HMH.ANESI ---
[facility] Anesthesia Record Part I Intake, IV Amount: 1,100 Estimated blood loss (mL): 5 Urine output (mL): 0 Blood Pressure: 127/69 SaO2: 95 Pulse Rate: 68 Respiratory Rate: 16 Temperature: 97.8 F Patient is:: Drowsy, Stable Stable to PACU at:: 09:55
[2021-09-29 10:06] LABS: POC Glucose,Bedside 196 (70-110)
--- NOTE | 2021-09-29 10:06 | P.OP_ITS ---
Date of procedure: 09/29/21 Pre-op Diagnosis:: Penile phimosis Post-op Diagnosis:: Penile phimosis Procedure performed:: Circumcision with a frenulotomy Surgeon:: Geoffrey Celaya MD REGIONAL SALES ASSOCIATE:: Americo Schmid Anesthesia: LMA Estimated blood loss (mL): 2 Clinical Note:: 75-year-old white male with 4-year history of difficulty retracting his foreskin. He has associated balanitis and presents for circumcision. Operative findings:: Penile phimosis is present. After retracting the foreskin there is no evidence of any abnormalities along glans. Circumcision completed without complications Operative note:: Patient taken to the operating room after informed consent was obtained. He was placed on the operating table in the supine position and general anesthesia administered. Preoperative antibiotics and sequential compression devices placed. In the supine position he was prepped and draped in the standard surgical fashion. Local anesthetic was placed as a ring block around the base of the penis. Of the circumcision was marked and a straight clamp was placed in the midline on the dorsal aspect of the foreskin and the skin was clamped for 30 seconds. Skin was then unclamped and the skin was incised back to our line of circumcision laterally. Scissors were then used to incise the skin along the previously marked line of circumcision. Skin was removed and hemostasis achieved of the underlying tissues. After hemostasis was frenulotomy was performed and 3-0 chromic sutures were placed at the 12 3 9 and 6 o'clock position. 4-0 chromic's were then used to close the frenulotomy site and 3-0 chromic's were used in between each suture at the 3, 6, 9 and 12:00 positions. There was a good cosmetic result afterwards. Vaseline gauze was placed along the incision and the compression dressing applied. The patient tolerated the procedure well there are no complications. Sponge needle instrument count were correct at the end of the case. Condition: stable Disposition: PACU Specimens:: Foreskin Complications:: None
--- NOTE | 2021-10-02 09:55 | HMH.ANESII ---
[facility] Anesthesia Record Part II Discharge Time: 10:25 Destination: Surgical Day Care (OP Surgery) PACU nurse assessment reviewed?: Yes Patient Condition:: Good Anesthesia Complications:: None Swallowing reflex intact?: Yes Cyanosis?: No Blood Pressure: 129/67 Pulse Rate: 63 Temperature: 97.1 F Mental Status: Alert & Oriented Pain level:: 0 Nausea and/or vomitting:: None Intake, IV Amount: 0
[2021-10-02 09:56] VITALS: BP 129/67; PULSE 63; TEMP 36.2
[2022-03-08 10:59] LABS: POC Glucose,Bedside 224 (70-110)
== END 2021-09-29 11:00 | disposition home or self-care (01) ==
LOC: OR 06:53
PROVIDERS: PCP Internal Medicine; Visit Provider Urology
DX: N47.1 Phimosis (principal); J45.909 Unspecified asthma, uncomplicated; I25.10 Atherosclerotic heart disease of native coronary artery without angina pectoris; E11.9 Type 2 diabetes mellitus without complications; K21.9 Gastro-esophageal reflux disease without esophagitis; E78.5 Hyperlipidemia, unspecified; I10 Essential (primary) hypertension; Z87.891 Personal history of nicotine dependence; Z80.9 Family history of malignant neoplasm, unspecified; Z82.3 Family history of stroke; Z79.82 Long term (current) use of aspirin; Z79.899 Other long term (current) drug therapy
CPT/HCPCS: 54164; 82962; 96374; J2405

== ENCOUNTER → 2022-05-08 11:04 | Outpatient (CLI) | payer MEDICARE, SELFPAY ==
--- NOTE | 2022-05-08 11:07 | XR_ITS ---
FINAL REPORT TECHNIQUE: 2 view chest CLINICAL HISTORY: SOA COMPARISON: 11/30/2020 FINDINGS: No acute pulmonary opacities present. There is no evidence of effusion or pneumothorax. There is evidence of prior median sternotomy, presumably from CABG. Otherwise mediastinum is unremarkable. The heart is normal in size. IMPRESSION: Unremarkable chest, status post CABG. Reviewed, Interpreted and Dictated by Denise David MD Transcribed by Teresa Smith Authenticated and [facility]
== END ==
PROVIDERS: PCP Internal Medicine; Visit Provider Internal Medicine
DX: R06.02 Shortness of breath (principal); I25.10 Atherosclerotic heart disease of native coronary artery without angina pectoris; I10 Essential (primary) hypertension
CPT/HCPCS: 71046

== ENCOUNTER → 2022-05-22 14:35 | Outpatient (CLI) | payer MEDICARE, SELFPAY ==
[2022-05-22 16:02] LABS: Basophils # 0.1 K/mm3 (0-0.2); Basophils % 0.9 % (0.1-2.0); Eosinophils # 0.3 K/mm3 (0.0-0.4); Eosinophils % 4.1 % (0.1-12.0); Hematocrit 43.2 % (42.0-52.0); Hemoglobin 13.6 g/dL (14.1-18.0); Lymphocytes # 1.2 K/mm3 (0.7-4.5); Lymphocytes % 15.6 % (10-50); Mean Corpuscular HGB Conc 31.5 g/dL (31.8-35.4); Mean Corpuscular Hemoglobin 28.3 pg (27.0-31.2); Mean Corpuscular Volume 89.8 fl (80-94); Mean Platelet Volume 8.9 fl (7.4-10.4); Monocytes # 0.8 K/mm3 (0.1-1.0); Monocytes % 10.2 % (1.7-9.3); Neutrophils # 5.1 K/mm3 (1.8-7.8); Neutrophils % 69.1 % (37.0-80.0); Platelet Count 258 K/mm3 (142-424); Red Blood Count 4.81 M/mm3 (4.60-6.20); Red Cell Distribution Width 13.6 % (11.5-17.5); White Blood Count 7.4 K/mm3 (4.8-10.8)
[2022-05-22 16:29] LABS: Microalbumin/Creatinine Ratio 50.5
[2022-05-22 16:47] LABS: Creatinine,Urine Random 77 mg/dL (Not Estab.); Hemoglobin A1C 9.9 % (4.0-6.0)
[2022-05-22 17:26] LABS: Alanine Aminotransferase 15 U/L (12-78); Albumin Level 3.8 g/dl (3.5-5.0); Albumin/Globulin Ratio 1.5 (1.1-1.8); Alkaline Phosphatase 75 U/L (38-126); Anion Gap 11.4 mEq/L (5-15); Aspartate Amino Transferase 20 U/L (17-59); Bilirubin,Direct 0.2 mg/dl (0.0-0.4); Bilirubin,Indirect 0.5 mg/dL (0.0-0.9); Bilirubin,Total 0.7 mg/dl (0.2-1.3); Blood Urea Nitrogen 17 mg/dl (9-20); Calcium 9.2 mg/dl (8.4-10.2); Carbon Dioxide 29 mmol/L (22.0-30.0); Chloride 101 mmol/L (98-107); Estimated Glomerular Filt Rate 94 ml/min (>60); GFR (African American) 114 ML/MIN (>60); Globulin 2.5 g/dL (1.3-3.2); Glucose 255 mg/dl (74-100); Potassium 4.4 mmoL/L (3.5-5.1); Sodium 137 mmol/L (136-145); Total Protein,Serum 6.3 g/dl (6.3-8.2)
[2022-05-22 17:54] LABS: Prostate Specific Ag Screen 0.9 ng/ml (0.0-4.0)
[2022-05-23 11:14] LABS: Chol/HDL Ratio 3.5 (1-3.5); Cholesterol 131 mg/dl (140-200); HDL Cholesterol 37 mg/dl (40-60); Triglycerides 126 mg/dl (30-150); VLDL Cholesterol 25 mg/dL (0-40)
[2022-05-23 11:25] LABS: Direct LDL Cholesterol 64.57 mg/dL (100-129)
== END ==
PROVIDERS: PCP Internal Medicine; Visit Provider Internal Medicine
DX: I25.10 Atherosclerotic heart disease of native coronary artery without angina pectoris (principal); I10 Essential (primary) hypertension; E78.5 Hyperlipidemia, unspecified; E11.51 Type 2 diabetes mellitus with diabetic peripheral angiopathy without gangrene; Z79.84 Long term (current) use of oral hypoglycemic drugs; Z12.5 Encounter for screening for malignant neoplasm of prostate
CPT/HCPCS: 80053; 80061; 80076; 82043; 82248; 82570; 83036; 85025; G0103

== ENCOUNTER → 2022-11-28 12:51 | Outpatient (CLI) | payer MEDICARE, SELFPAY ==
[2022-11-28 13:55] LABS: Alanine Aminotransferase 17 U/L (12-78); Albumin Level 3.6 g/dl (3.5-5.0); Albumin/Globulin Ratio 1.3 (1.1-1.8); Alkaline Phosphatase 66 U/L (38-126); Anion Gap 13.5 mEq/L (5-15); Aspartate Amino Transferase 25 U/L (17-59); Bilirubin,Total 0.7 mg/dl (0.2-1.3); Blood Urea Nitrogen 12 mg/dl (9-20); Calcium 8.7 mg/dl (8.4-10.2); Carbon Dioxide 28 mmol/L (22.0-30.0); Chloride 105 mmol/L (98-107); Cholesterol 118 mg/dl (140-200); Estimated Glomerular Filt Rate 110 ml/min (>60); GFR (African American) 133 ML/MIN (>60); Globulin 2.7 g/dL (1.3-3.2); Glucose 167 mg/dl (74-100); HDL Cholesterol 40 mg/dl (40-60); Potassium 4.5 mmoL/L (3.5-5.1); Sodium 142 mmol/L (136-145); Total Protein,Serum 6.3 g/dl (6.3-8.2); Triglycerides 120 mg/dl (30-150); VLDL Cholesterol 24 mg/dL (0-40)
[2022-11-28 14:05] LABS: Direct LDL Cholesterol 61.82 mg/dL (100-129)
[2022-11-28 14:09] LABS: Hemoglobin A1C 9.6 % (4.0-6.0)
== END ==
PROVIDERS: PCP Internal Medicine; Visit Provider Internal Medicine
DX: E11.59 Type 2 diabetes mellitus with other circulatory complications (principal); I25.10 Atherosclerotic heart disease of native coronary artery without angina pectoris; I10 Essential (primary) hypertension; E78.5 Hyperlipidemia, unspecified; Z79.84 Long term (current) use of oral hypoglycemic drugs
CPT/HCPCS: 80053; 80061; 83036

== ENCOUNTER 2022-12-09 04:34 | Emergency (ER) | payer MEDICARE, SELFPAY ==
[2022-12-09 04:45] VITALS: BP 152/54; PULSE 53; RESP 16; TEMP 36.4; O2SAT 97; BMI 34.4
--- NOTE | 2022-12-09 04:59 | PC.NURSE ---
cleaned pts bites with chlorhexadine and saline.
[2022-12-09 05:07] VITALS: BP 0/0; PULSE 0; RESP 0; TEMP -17.7; TEMP 0
== END 2022-12-09 05:11 | disposition left against medical advice (07) ==
PROVIDERS: Emergency Provider Emergency Medicine; PCP Internal Medicine
DX: Z53.21 Procedure and treatment not carried out due to patient leaving prior to being seen by health care provider (principal)
CPT/HCPCS: 99211

== ENCOUNTER → 2023-03-06 13:11 | Outpatient (CLI) | payer MEDICARE, SELFPAY ==
[2023-03-06 15:55] LABS: Creatinine,Urine Random 40 mg/dL (Not Estab.); Microalbumin/Creatinine Ratio 150.7
== END ==
PROVIDERS: PCP Internal Medicine; Visit Provider Internal Medicine
DX: E11.59 Type 2 diabetes mellitus with other circulatory complications (principal); Z79.84 Long term (current) use of oral hypoglycemic drugs
CPT/HCPCS: 82043; 82570

== ENCOUNTER 2023-06-12 13:14 | Outpatient (CLI) | payer MEDICARE, SELFPAY ==
[2023-06-12 15:03] LABS: Basophils # 0.1 K/mm3 (0-0.2); Eosinophils # 0.4 K/mm3 (0.0-0.4); Eosinophils % 5.4 % (0.1-12.0); Hematocrit 44.5 % (42.0-52.0); Hemoglobin 14.8 g/dL (14.1-18.0); Lymphocytes # 1.4 K/mm3 (0.7-4.5); Lymphocytes % 18.5 % (10-50); Mean Corpuscular HGB Conc 33.1 g/dL (31.8-35.4); Mean Corpuscular Hemoglobin 29.2 pg (27.0-31.2); Mean Corpuscular Volume 88.1 fl (80-94); Mean Platelet Volume 10.1 fl (7.4-10.4); Monocytes # 0.8 K/mm3 (0.1-1.0); Monocytes % 11.1 % (1.7-9.3); Neutrophils # 4.8 K/mm3 (1.8-7.8); Platelet Count 236 K/mm3 (142-424); Red Blood Count 5.05 M/mm3 (4.60-6.20); Red Cell Distribution Width 13.8 % (11.5-17.5); White Blood Count 7.6 K/mm3 (4.8-10.8)
[2023-06-12 16:09] LABS: Alanine Aminotransferase 19 U/L (12-78); Albumin Level 3.9 g/dl (3.5-5.0); Albumin/Globulin Ratio 1.4 (1.1-1.8); Alkaline Phosphatase 65 U/L (38-126); Anion Gap 9.8 mEq/L (5-15); Aspartate Amino Transferase 28 U/L (17-59); Bilirubin,Total 0.9 mg/dl (0.2-1.3); Blood Urea Nitrogen 12 mg/dl (9-20); Calcium 8.5 mg/dl (8.4-10.2); Carbon Dioxide 28 mmol/L (22.0-30.0); Chloride 104 mmol/L (98-107); Chol/HDL Ratio 3.5 (1-3.5); Cholesterol 131 mg/dl (140-200); Estimated Glomerular Filt Rate 109 ml/min (>60); GFR (African American) 132 ML/MIN (>60); Globulin 2.8 g/dL (1.3-3.2); Glucose 179 mg/dl (74-100); HDL Cholesterol 37 mg/dl (40-60); Potassium 4.8 mmoL/L (3.5-5.1); Sodium 137 mmol/L (136-145); Total Protein,Serum 6.7 g/dl (6.3-8.2); Triglycerides 109 mg/dl (30-150); VLDL Cholesterol 22 mg/dL (0-40)
[2023-06-12 16:33] LABS: Hemoglobin A1C 9.3 % (4.0-6.0)
[2023-06-12 16:34] LABS: Prostate Specific Ag Screen 0.8 ng/ml (0.0-4.0)
[2023-06-12 18:41] LABS: Direct LDL Cholesterol 77.86 mg/dL (100-129)
[2023-06-12 20:22] LABS: Creatinine,Urine Random 65 mg/dL (Not Estab.)
== END 2023-06-12 23:59 ==
LOC: LAB.DROPOF 13:16
PROVIDERS: PCP Internal Medicine; Visit Provider Internal Medicine
DX: E11.59 Type 2 diabetes mellitus with other circulatory complications (principal); Z12.5 Encounter for screening for malignant neoplasm of prostate; I25.10 Atherosclerotic heart disease of native coronary artery without angina pectoris; I11.9 Hypertensive heart disease without heart failure; E78.5 Hyperlipidemia, unspecified; N48.1 Balanitis; B35.6 Tinea cruris; Z79.84 Long term (current) use of oral hypoglycemic drugs; Z87.891 Personal history of nicotine dependence
CPT/HCPCS: 80053; 80061; 82043; 82570; 83036; 85025; G0103

== ENCOUNTER 2024-01-07 18:07 | Outpatient (CLI) | payer MEDICARE, SELFPAY ==
[2024-01-07 19:24] LABS: Hemoglobin A1C 8.6 % (4.0-6.0)
[2024-01-07 19:29] LABS: Alanine Aminotransferase 20 U/L (12-78); Albumin Level 3.4 g/dl (3.5-5.0); Albumin/Globulin Ratio 1.3 (1.1-1.8); Alkaline Phosphatase 61 U/L (38-126); Anion Gap 10.1 mEq/L (5-15); Aspartate Amino Transferase 26 U/L (17-59); Bilirubin,Total 1.2 mg/dl (0.2-1.3); Blood Urea Nitrogen 11 mg/dl (9-20); Calcium 8.7 mg/dl (8.4-10.2); Carbon Dioxide 27 mmol/L (22.0-30.0); Chloride 105 mmol/L (98-107); Chol/HDL Ratio 3.4 (1-3.5); Cholesterol 147 mg/dl (140-200); Estimated Glomerular Filt Rate 109 ml/min (>60); GFR (African American) 132 ML/MIN (>60); Globulin 2.7 g/dL (1.3-3.2); Glucose 131 mg/dl (74-100); HDL Cholesterol 43 mg/dl (40-60); Potassium 4.1 mmoL/L (3.5-5.1); Sodium 138 mmol/L (136-145); Total Protein,Serum 6.1 g/dl (6.3-8.2); Triglycerides 119 mg/dl (30-150); VLDL Cholesterol 24 mg/dL (0-40)
[2024-01-07 19:46] LABS: Direct LDL Cholesterol 74.34 mg/dL (100-129)
== END 2024-01-07 23:59 | disposition home or self-care (01) ==
LOC: LAB.DROPOF 18:07
PROVIDERS: PCP Internal Medicine; Visit Provider Internal Medicine
DX: E78.5 Hyperlipidemia, unspecified (principal); E11.59 Type 2 diabetes mellitus with other circulatory complications; I10 Essential (primary) hypertension
CPT/HCPCS: 80053; 80061; 83036

== ENCOUNTER 2024-02-11 14:30 | Outpatient (CLI) | payer MEDICARE, SELFPAY | END 2024-02-11 23:59 | disposition home or self-care (01) | LOC: LAB.DROPOF 02-12 14:30 | PROVIDERS: PCP Internal Medicine; Visit Provider Internal Medicine | DX: B34.9 Viral infection, unspecified (principal) | CPT/HCPCS: 87635 ==

== ENCOUNTER 2024-02-14 14:54 | Outpatient (CLI) | payer MEDICARE, SELFPAY ==
--- NOTE | 2024-02-14 14:55 | CT_ITS ---
FINAL REPORT TECHNIQUE: Axial images through the abdomen and pelvis were performed without contrast.This study was performed with techniques to keep radiation doses as low as reasonably achievable, (ALARA). Individualized dose reduction techniques using automated exposure control or adjustment of mA and/or kV according to the patient's size were employed. CLINICAL HISTORY: Fever, chills, left lower quadrant pain FINDINGS: ABDOMEN: Mild atelectasis is seen at the lung bases. The heart size is normal. Limited images of the liver are unremarkable. Gallbladder is partially collapsed. The spleen is normal. No adrenal mass is identified. The aorta is normal in caliber. There is no significant free fluid or adenopathy. There is a mass in the anterior left kidney measuring 6.6 cm which cannot be accurately characterized without contrast, favor cyst. There is a nonobstructing, 3 mm right renal stone. There is no hydronephrosis. There is significant stranding of the small bowel mesentery of uncertain etiology which represent mesenteric panniculitis. PELVIS: The appendix is normal. There is diffuse urinary bladder wall thickening, likely inflammatory. Multiple mildly enlarged inguinal lymph nodes are seen which may be reactive or neoplastic. 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 Mildly enlarged inguinal lymph nodes which may be reactive or neoplastic. Urinary bladder wall thickening, likely inflammatory. Reviewed, Interpreted and Dictated by Johnnie Huitron III, MD Transcribed by Odalys Ma Authenticated and [facility]
== END 2024-02-14 23:59 | disposition home or self-care (01) ==
LOC: RAD 14:55
PROVIDERS: PCP Internal Medicine; Visit Provider Internal Medicine
DX: R10.32 Left lower quadrant pain (principal)
CPT/HCPCS: 74176

== ENCOUNTER 2024-04-07 09:18 | Outpatient (CLI) | payer MEDICARE, SELFPAY ==
--- NOTE | 2024-04-07 09:23 | US_ITS ---
PROCEDURE INFORMATION: Exam: US Abdomen Complete Exam date and time: 04/07/2024 9:27 AM Age: 78 years old Clinical indication: Abdominal pain; Flank; Left; Additional info: Left flank pain, left renal cyst TECHNIQUE: Imaging protocol: Real-time ultrasound of the abdomen with image documentation. Complete exam. COMPARISON: CT ABDOMEN PELVIS WO CON 02/14/2024 2:56 PM FINDINGS: Liver: There is a diffuse increase in hepatic parenchymal echogenicity, consistent with fatty infiltration. Gallbladder: Gallbladder wall 2.8 mm. No gallstones Biliary ducts: Common bile duct 4.3 mm Pancreas: The pancreas is poorly-visualized due to overlying bowel gas. Right kidney: Right kidney 12.6 cm. No hydronephrosis Left kidney: Left kidney 11.1 cm. No hydronephrosis left renal cortex 1.86 cm. Simple cyst in the left kidney 7.2 cm. . No follow-up imaging recommended . Spleen: Spleen 10.7 cm Aorta: Proximal aorta 2.4 x 2 cm. Mid aorta 1.8 x 2 cm. Distal aorta 1.7 x 1.8 cm Inferior vena cava: Normal. Portal venous: Hepatopetal flow in the portal vein IMPRESSION: 7 cm simple cyst left kidney . No follow-up imaging recommended . There is a diffuse increase in hepatic parenchymal echogenicity, consistent with fatty infiltration. Otherwise negative study
== END 2024-04-07 23:59 | disposition home or self-care (01) ==
LOC: RAD 09:20
PROVIDERS: PCP Internal Medicine; Visit Provider Internal Medicine
DX: R10.9 Unspecified abdominal pain (principal); N28.1 Cyst of kidney, acquired
CPT/HCPCS: 76700

== ENCOUNTER 2024-07-13 14:17 | Outpatient (CLI) | payer MEDICARE, SELFPAY ==
--- NOTE | 2024-07-13 14:22 | XR_ITS ---
FINAL REPORT CLINICAL HISTORY: Right knee pain medially COMPARISON: None FINDINGS: RIGHT KNEE Three views demonstrate no acute fracture or dislocation. There is mild narrowing of the medial compartment joint space. Small osteophytes are noted along the undersurface of the patella. No acute soft tissue abnormality is seen. IMPRESSION: Degenerative changes without acute bony abnormality. Reviewed, Interpreted and Dictated by Javid Caldwell MD Transcribed by Amrita Howard Authenticated and [facility]
== END 2024-07-13 23:59 | disposition home or self-care (01) ==
LOC: RAD 14:19
PROVIDERS: PCP Internal Medicine; Visit Provider Internal Medicine
DX: M25.561 Pain in right knee (principal)
CPT/HCPCS: 73562

== ENCOUNTER 2024-11-30 16:01 | Outpatient (CLI) | payer MEDICARE, SELFPAY ==
[2024-11-30 09:13] LABS: Basophils # 0.1 K/mm3 (0-0.2); Basophils % 1.3 % (0.1-2.0); Eosinophils # 0.6 Kmm3 (0.0-0.4); Eosinophils % 7.3 % (0.1-12.0); Hemoglobin 13.2 g/dL (14.1-18.0); Immature Granulocytes # 0.04 10^3uL; Immature Granulocytes % 0.5 %; Lymphocytes # 0.9 K/mm3 (0.7-4.5); Lymphocytes % 10.9 % (10-50); Mean Corpuscular Volume 84.9 fl (80-94); Mean Platelet Volume 10.5 fl (7.4-10.4); Monocytes # 1.1 K/mm3 (0.1-1.0); Monocytes % 13.4 % (1.7-9.3); Neutrophils # 5.6 K/mm3 (1.8-7.8); Neutrophils % 66.6 % (37.0-80.0); Nucleated Red Blood Cells # 0 10^3/uL; Nucleated Red Blood Cells % 0 %; Platelet Count 192 K/mm3 (142-424); Red Blood Count 4.71 M/mm3 (4.60-6.20); Red Cell Distribution Width 12.7 % (11.5-17.5); Red Cell Distribution Width-SD 39.4 fL; White Blood Count 8.3 K/mm3 (4.8-10.8)
[2024-11-30 09:29] LABS: Albumin Level 3.6 g/dl (3.5-5.0); Chloride 100 mmol/L (98-107); Potassium 4.2 mmoL/L (3.5-5.1); Sodium 135 mmol/L (136-145)
[2024-11-30 09:31] LABS: Amylase 42 U/L (30-110); Anion Gap 12.2 mEq/L (5-15); Blood Urea Nitrogen 13 mg/dl (9-20); Carbon Dioxide 27 mmol/L (22.0-30.0); Estimated Glomerular Filt Rate 130 ml/min (>60); GFR (African American) 158 ML/MIN (>60)
[2024-11-30 09:32] LABS: Alanine Aminotransferase 26 U/L (12-78); Albumin/Globulin Ratio 1.2 (1.1-1.8); Alkaline Phosphatase 118 U/L (38-126); Aspartate Amino Transferase 31 U/L (17-59); Bilirubin,Total 0.8 mg/dl (0.2-1.3); Calcium 8.9 mg/dl (8.4-10.2); Globulin 2.9 g/dL (1.3-3.2); Glucose 318 mg/dl (74-100); Total Protein,Serum 6.5 g/dl (6.3-8.2)
[2024-11-30 09:52] LABS: Troponin I < 0.01 ng/ml (0.00-0.034)
== END 2024-11-30 23:59 | disposition home or self-care (01) ==
LOC: LAB.DROPOF 16:02
PROVIDERS: PCP Internal Medicine; Visit Provider Internal Medicine
DX: E11.59 Type 2 diabetes mellitus with other circulatory complications (principal); I10 Essential (primary) hypertension; R10.13 Epigastric pain; R07.9 Chest pain, unspecified
CPT/HCPCS: 36415; 80053; 82150; 84484; 85025

== ENCOUNTER 2024-12-09 15:00 | Observation (INO) | payer MEDICARE, SELFPAY ==
[2024-12-09] VITALS (17 sets, daily range): BP systolic 106–133; BP diastolic 53–78; PULSE 51–79; RESP 15–20; TEMP 36.9; O2SAT 93–100; BMI 26.2; BMI 24.2
--- NOTE | 2024-12-09 15:13 | XR_ITS ---
PROCEDURE INFORMATION: Exam: XR Chest Exam date and time: 12/09/2024 4:04 PM Age: 78 years old Clinical indication: Shortness of breath; Prior surgery; Surgery date: 6+ months; Surgery type: Open heart; Additional info: Dyspnea TECHNIQUE: Imaging protocol: Radiologic exam of the chest. Views: 1 view. COMPARISON: CR XR CHEST 2V 05/08/2022 11:30 AM FINDINGS: Lungs: Consolidative opacities in the lung bases compatible with atelectasis vs airspace disease. Pleural spaces: Possible small pleural effusions. No pneumothorax. Heart/Mediastinum: Unremarkable as visualized. Bones/joints: No evidence of acute osseous abnormality. IMPRESSION: 1. Consolidative opacities in the lung bases compatible with atelectasis vs airspace disease. 2. Possible small pleural effusions.
--- NOTE | 2024-12-09 15:14 | HMH.EDGENADL ---
Discharge Plan Disposition Patient Disposition: Admitted Prescriptions Prescriptions: No Action aspirin 325 mg tablet 650 mg PO BID Patient Comments: Takes at bedtime Solu-Medrol (PF) 40 mg/mL recon soln 40 mg IM ONCE Qty: 1 0RF atorvastatin 80 mg tablet See Rx Instructions .ROUTE .COMPLEX Qty: 90 1RF Dose Instruction: TAKE ONE TABLET BY MOUTH EVERY DAY AT BEDTIME Rx Instructions: TAKE ONE TABLET BY MOUTH EVERY DAY AT BEDTIME ramipril 5 mg capsule See Rx Instructions .ROUTE .COMPLEX Qty: 90 1RF Dose Instruction: TAKE ONE CAPSULE BY MOUTH EVERY DAY Rx Instructions: TAKE ONE CAPSULE BY MOUTH EVERY DAY metoprolol tartrate 25 mg tablet See Rx Instructions .ROUTE .COMPLEX Qty: 90 1RF Dose Instruction: TAKE ONE TABLET BY MOUTH EVERY DAY Rx Instructions: TAKE ONE TABLET BY MOUTH EVERY DAY glimepiride 2 MG tablet 2 mg PO DAILY Patient Comments: esomeprazole magnesium 20 MG tablet,delayed release (DR/EC) 20 mg PO DAILY Referrals Follow up/Referrals: Frank Trevino MD [Primary Care Provider, Medical] - See instructions Activity Restrictions/Add. Instructions Additional Instructions/Restrictions: No emergent medical condition identified that would require hospitalization right now. I do believe your symptoms are likely a manifestation of very mild heart failure. You are stable to follow-up closely outpatient with Dr. Licea as previously instructed. You may call first thing in the morning and see if they can see you by the end of the week otherwise you may see them on Saturday as previously scheduled. Clinical Impressions Clinical Impression: Dyspnea, Pleural effusion, Heart failure Print Language Print Language: Cymraes Discharge ED Provider: Soco Lucas General Adult HPI General Chief complaint: Shortness of Breath/Dyspnea Stated complaint: SOB, Chest tightness Time Seen by Provider: 12/09/24 15:06 History of Present Illness HPI narrative: Patient is a 78 yo here with two weeks of generalized weakness and rattling in my chest. NO CP. H/o cabg x3 20 years ago. Has not seen cardiology in 8 years but made an appt on saturday for shani. No sx at the moment. Denies cp, le edema, cough, fevers, etc. Related Data Home Medications ?Medication ?Instructions ?Recorded ?Confirmed glimepiride 2 mg tablet 2 mg PO DAILY Diabetes 07/14/17 11/30/24 esomeprazole magnesium 20 mg 20 mg PO DAILY acid reflux 07/22/17 11/30/24 tablet,delayed release aspirin 325 mg tablet 650 mg PO BID heart health 12/26/23 11/30/24 Previous Rx's ?Medication ?Instructions ?Recorded atorvastatin 80 mg tablet See Rx Instructions .Route 08/05/24 .COMPLEX #90 tabs ramipril 5 mg capsule See Rx Instructions .Route 10/09/24 .COMPLEX #90 caps metoprolol tartrate 25 mg tablet See Rx Instructions .Route 12/04/24 .COMPLEX #90 tabs Allergies Allergy/AdvReac Type Severity Reaction Status Date / Time venom-wasp Allergy Unknown ALLERGY Verified 11/30/24 08:22 bee venom protein (honey bee) Allergy Unknown Verified 11/30/24 08:22 allergy reaction [facility] Disclaimer: The information contained in this section may have been updated after the patient was seen, as this information can be updated by other users. 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 current occupational exposures/hazards: No caffeine: Yes Have you lived/traveled outside [place] in past 30 days?: No Contact w/someone who lives/traveled outside US past 30 days?: No Exposure to someone with infectious disease in past 14 days?: No Do you have a fever (greater than 100.4 F or 38 C)?: No Have you tested positive for COVID-19?: No Exposed to someone with COVID-19 in past 14 days?: No Do you have a sore throat?: No Do you have a cough?: No Do you have any weakness?: No Do you have any diarrhea?: No Are you experiencing any unusual bleeding?: No Do you have any muscle aches/pain?: No Do you have any abdominal pain?: No Are you experiencing loss of taste or smell?: No Other Medical History Have you received the Flu Vaccine for this season: Yes Have you received the Pneumonia Vaccine: No ROS Obtained: Yes All systems reviewed & no additional complaints except as documented Physical Exam General General appearance: alert and in no apparent distress Respiratory Respiratory exam: Present normal lung sounds bilaterally; Absent respiratory distress Cardiovascular Cardiovascular exam: Present regular rate, normal rhythm and other (bilateral lower extremity edema ) Neurological Exam Neurological exam: Present alert and oriented X3 Medical Decision Making Medical Records Screening: Per USPSTF and CDC recommendations, given the prevalence of disease in our region, it is our hospital?s policy to screen for HIV and viral Hepatitis for all patients aged 18 and over and those with ongoing risk factors. Johnny Inquiry Pt receiving controlled substance: No Vital Signs: 12/09/24 15:09 12/09/24 15:16 12/09/24 15:30 Temperature 98.4 F Temperature Source Oral Pulse Rate 75 67 Pulse Rate [Left] 68 Respiratory Rate 16 19 17 Blood Pressure 113/67 116/53 L Blood Pressure [Right Arm] 126/66 Blood Pressure Mean 73 74 Blood Pressure Mean [Right Arm] 86 Blood Pressure Source [Right Arm] Automatic Cuff Blood Pressure Position [Right Arm] Sitting 02 Sat by Pulse Oximetry 94 L 96 96 Oxygen Delivery Method Room Air Room Air Room Air 12/09/24 15:45 12/09/24 16:00 12/09/24 16:15 Temperature Temperature Source Pulse Rate 70 68 64 Pulse Rate [Left] Respiratory Rate 19 20 19 Blood Pressure 108/57 L 117/53 L 117/64 Blood Pressure [Right Arm] Blood Pressure Mean 76 74 69 Blood Pressure Mean [Right Arm] Blood Pressure Source [Right Arm] Blood Pressure Position [Right Arm] 02 Sat by Pulse Oximetry 95 100 100 Oxygen Delivery Method Room Air Room Air Room Air 12/09/24 16:45 12/09/24 17:00 12/09/24 17:15 Temperature Temperature Source Pulse Rate 56 L 54 L 54 L Pulse Rate [Left] Respiratory Rate 19 17 19 Blood Pressure 113/63 106/54 L 118/63 Blood Pressure [Right Arm] Blood Pressure Mean 69 75 81 Blood Pressure Mean [Right Arm] Blood Pressure Source [Right Arm] Blood Pressure Position [Right Arm] 02 Sat by Pulse Oximetry 95 95 95 Oxygen Delivery Method Room Air Room Air Room Air 12/09/24 17:30 12/09/24 17:45 12/09/24 18:00 Temperature Temperature Source Pulse Rate 54 L 57 L 51 L Pulse Rate [Left] Respiratory Rate 19 Blood Pressure 125/55 L 127/70 126/78 Blood Pressure [Right Arm] Blood Pressure Mean 77 94 Blood Pressure Mean [Right Arm] Blood Pressure Source [Right Arm] Blood Pressure Position [Right Arm] 02 Sat by Pulse Oximetry 96 96 93 L Oxygen Delivery Method Room Air Room Air Room Air Lab Data Lab results reviewed: Yes I reviewed the patient's lab results. Lab Results 12/09/24 15:10: WBC 11.1 H, RBC 5.22, Hgb 14.3, Hct 43.8, MCV 83.9, MCH 27.4, MCHC 32.6, RDW 12.8, Plt Count 220, MPV 10.6 H, Neut % (Auto) 74.1, Lymph % (Auto) 7.0 L, [place] % (Auto) 11.9 H, Eos % (Auto) 5.8, Baso % (Auto) 0.8, Neut # (Auto) 8.2 H, Lymph # (Auto) 0.8, [place] # (Auto) 1.3 H, Eos # (Auto) 0.6 H, Baso # (Auto) 0.1, D-Dimer 1.18 H, Sodium 131 L, Potassium 3.7, Chloride 93 L, Carbon Dioxide 29, Anion Gap 12.7, BUN 12, Creatinine 0.60 L, Estimated Creat Clear 73, Estimated GFR 130, Est GFR ( Amer) 158, Glucose 381 H, Calcium 9.4, Magnesium 1.9, Total Bilirubin 1.1, AST 32, ALT 27, Alkaline Phosphatase 176 H, Troponin I < 0.01, NT-Pro-B Natriuret Pep 1140 H, Total Protein 7.6, Albumin 4.4, Globulin 3.2, Albumin/Globulin Ratio 1.4, Lipase 173, TSH 1.82 12/09/24 15:40: SARS-CoV-2 (PCR) Not detected, Influenza A Untype (PCR) Not detected, Influenza Type B (PCR) Not detected 12/09/24 15:10 12/09/24 15:10 Orders (Tests/Meds): ED MEDICATIONS Generic Name Dose Route Start Last Admin Trade Name Freq PRN Reason Stop Dose Admin Sodium Chloride 10 ml 12/09/24 16:31 12/09/24 18:22 Sodium Chloride 0.9% 10ml Syr (Rad Only) IV 01/08/25 16:30 10 ml NEEDED PRN Administration Maintain IV Site Discontinued Medications Generic Name Dose Route Start Last Admin Trade Name Reuben PRN Reason Stop Dose Admin Iopamidol 70 ml 12/09/24 16:31 12/09/24 16:32 Iopamidol-370 (76%);100ml Bottle IV 12/09/24 16:32 70 ml ONCE ONE Administration Iopamidol 75 ml 12/09/24 18:21 Iopamidol-370 (76%);100ml Bottle IV 12/09/24 18:22 ONCE ONE Sodium Chloride 50 ml 12/09/24 16:31 12/09/24 16:32 0.9 % Sodium Chloride 50 Ml Vial IV 12/09/24 16:32 50 ml ONCE ONE Administration Sodium Chloride 10 ml 12/09/24 18:21 Sodium Chloride 0.9% 10ml Syr (Rad Only) IV 12/09/24 18:22 ONCE ONE ORDERS Category Date Time Status CT abdomen pelvis w con Stat Cat Scan 12/09/24 18:[address] angio chest PE protocol Stat Cat Scan 12/09/24 16:01 Completed CXR --portable [XR chest portable] Stat Exams 12/09/24 15:13 Completed POCUS Point of Care (ER Only) Stat Exams 12/09/24 16:15 Completed BNP [NT Pro Brain Natriuretic Pep.] Stat Lab 12/09/24 15:10 Completed CBC w/Auto Diff [Complete Blood Count Auto Diff] Stat Lab 12/09/24 15:10 Completed CMP [Comprehensive Metabolic Panel] Stat Lab 12/09/24 15:10 Completed D-Dimer Stat Lab 12/09/24 15:10 Completed Lipase Stat Lab 12/09/24 15:10 Completed Magnesium Stat Lab 12/09/24 15:10 Completed Rapid PCR Covid and Flu A/B Stat Lab 12/09/24 15:40 Completed TSH [Thyroid Stimulating Hormone] Stat Lab 12/09/24 15:10 Completed Trop I [Troponin I] Stat Lab 12/09/24 15:10 Completed Troponin I Q3H Lab 12/09/24 21:15 Ordered ECG Data Tracing #1: I reviewed this ECG and interpreted as documented below: HR 71 sinus rhythm, there are diffuse TWI in the inferior and anterior leads, no ST changes, no sig conduction abnormalities, abnormal EKG Medical Decision Narrative: 78 non toxic appearing male here with two weeks of gen weakness and dyspnea. Diff includes pna, worsening cad, HF, pte, etc. W/u pending. Reassessment 640 the patient remains very stable. Chest x-ray and CT scan of the patient's chest were performed which I personally interpreted which shows bilateral small pleural effusions no dense consolidation or evidence of pneumonia or pulmonary embolism. On radiology read of the CT scan of the patient's chest there are some concerning abdominal findings for possible pancreatic mass and lesions in the liver and lymph nodes warranting a dedicated abdominal and pelvis CT scan which I have performed. Rate of those are pending. Bedside ultrasound did not demonstrate any systolic dysfunction but there was some mild B-lines noted. Patient's BNP is elevated 1100 I suspect this patient has heart failure with preserved ejection fraction. Given this being a new diagnosis needing to be evaluated further by cardiology also the abnormal EKG which appears to be stable in comparison with old EKGs warrant admission and observation for further management of the patient's intra-abdominal lesions as well as workup and further evaluation by cardiology for presumed new diagnosis of heart failure. Patient is agreeable with this plan. Procedures Miscellaneous Procedure Procedure Performed: Limited cardiac ultrasound Indication: Dyspnea Identified structures: The heart was visualized in the parasternal long axis, parastenal short axis, apical four chamber and subxyphiod views. The IVC was visualized in the short axis and long axis at its entry into the right atrium. Findings: Normal LVEF no severe right heart strain noted no pericardial effusion Impression: Unremarkable limited ultrasound of the heart Images were saved to permanent archive The study was technically adequate CPT: 16892-19 This study was performed by co, and I personally interpreted all images/videos. Based on my clinical judgement, these images were adequate and did not necessitate further imaging. Limited lung ultrasound A focused ultrasound exam of the pleural spaces was performed to evaluate for pneumothorax, pulmonary edema, pleural effusion and/or consolidation. The ultrasound was performed with the following indications, as noted in the H&P: Dyspnea Identified structures: Right and left thoracic cavities were examined. Findings: Bilateral lung sliding present mild B-lines on the bibasilar lateral aspect of the patient's chest wall no large or moderate pleural effusions noted Impression: Scant B-lines noted bilateral base of the lungs otherwise unremarkable lung ultrasound Images were saved to permanent archive The study was technically adequate CPT 37015-25 This study was performed by co, and I personally interpreted all images/videos. Based on my clinical judgement, these images were adequate and did not necessitate further imaging. Critical Care Critical Care Time Critical Care Time: Yes Attestation: On 12/09/24, the high probability of a clinically significant, sudden or life threatening deterioration of the following system(s) required my full and direct attention, intervention and personal management. The time I documented below is in addition to time spent performing reported procedures but includes the following listed in this critical care notation. Total Time Total Critical Care Time: 35
[2024-12-09 15:22] LABS: Hematocrit 43.8 % (42.0-52.0); Hemoglobin 14.3 g/dL (14.1-18.0); Immature Granulocytes % 0.4 %; Mean Corpuscular HGB Conc 32.6 g/dL (31.8-35.4); Mean Corpuscular Hemoglobin 27.4 pg (27.0-31.2); Mean Corpuscular Volume 83.9 fl (80-94); Nucleated Red Blood Cells % 0 %; Platelet Count 220 K/mm3 (142-424); Red Blood Count 5.22 M/mm3 (4.60-6.20); Red Cell Distribution Width-SD 39.2 fL; White Blood Count 11.1 K/mm3 (4.8-10.8)
--- NOTE | 2024-12-09 15:26 | ECG_ITS ---
APPROVED REPORT Exam: Resting ECG HR:71 bpm ECG Measurements Heart Rate 71 AXES NJ 143 P 28 QRSd 90 QRS 79 QT 443 T -48 QTc 465 Conclusion SINUS RHYTHM WITH OCCASIONAL SUPRAVENTRICULAR PREMATURE COMPLEXES MODERATE T-WAVE ABNORMALITY, CONSIDER ANTEROLATERAL ISCHEMIA [-0.1+ mV T-WAVE IN V3-V6] MODERATE T-WAVE ABNORMALITY, CONSIDER INFERIOR ISCHEMIA [-0.1+ mV T-WAVE IN II/aVF] ABNORMAL ECG UNCONFIRMED REPORT Electronically signed by : Bayron Lucas, 12/09/2024 21:38:25
[2024-12-09 15:34] LABS: Alanine Aminotransferase 27 U/L (12-78); Albumin Level 4.4 g/dl (3.5-5.0); Albumin/Globulin Ratio 1.4 (1.1-1.8); Alkaline Phosphatase 176 U/L (38-126); Anion Gap 12.7 mEq/L (5-15); Aspartate Amino Transferase 32 U/L (17-59); Bilirubin,Total 1.1 mg/dl (0.2-1.3); Blood Urea Nitrogen 12 mg/dl (9-20); Calcium 9.4 mg/dl (8.4-10.2); Carbon Dioxide 29 mmol/L (22.0-30.0); Chloride 93 mmol/L (98-107); Creatinine Clearance Estimated 73 mL/min (50-200); Creatinine,Serum 0.60 mg/dl (0.66-1.25); Estimated Glomerular Filt Rate 130 ml/min (>60); GFR (African American) 158 ML/MIN (>60); Globulin 3.2 g/dL (1.3-3.2); Glucose 381 mg/dl (74-100); Magnesium 1.9 mg/dl (1.6-2.3); Potassium 3.7 mmoL/L (3.5-5.1); Sodium 131 mmol/L (136-145); Total Protein,Serum 7.6 g/dl (6.3-8.2)
[2024-12-09 15:45] LABS: D-Dimer 1.18 ug/mL (0.0-0.5)
[2024-12-09 15:47] LABS: Coronavirus 19, PCR Not Detected (NotDetected); Influenza A, PCR Not Detected (NotDetected); Influenza B, PCR Not Detected (NotDetected)
[2024-12-09 15:48] LABS: NT Pro Brain Natriuretic Pep. 1140 pg/mL (0-450)
[2024-12-09 15:58] LABS: Troponin I < 0.01 ng/ml (0.00-0.034)
--- NOTE | 2024-12-09 16:01 | CT_ITS ---
PROCEDURE INFORMATION: Exam: CTA Chest With Contrast Exam date and time: 12/09/2024 4:32 PM Age: 78 years old Clinical indication: Shortness of breath; Prior surgery; Surgery date: 6+ months; Surgery type: Open heart; Additional info: Dyspnea, elevated dimer TECHNIQUE: Imaging protocol: Computed tomographic angiography of the chest with contrast. Exam focused on the arteries. 3D rendering (Not supervised by radiologist): MIP and/or 3D reconstructed images were created by the technologist. Radiation optimization: All CT scans at this facility use at least one of these dose optimization techniques: automated exposure control; mA and/or kV adjustment per patient size (includes targeted exams where dose is matched to clinical indication); or iterative reconstruction. Contrast material: ISO 370; Contrast volume: 75; Contrast route: INTRAVENOUS (IV); COMPARISON: CR (CHEST, CXR AP LANDSCAPE) 12/09/2024 4:04 PM FINDINGS: Limitations: Respiratory motion artifact severely degrades images, limiting sensitivity of exam. Pulmonary arteries: No evidence of pulmonary emboli through the level of the segmental pulmonary arteries. Respiratory motion artifact limits evaluation for definitive exclusion of subsegmental pulmonary emboli. Aorta: No evidence of thoracic aortic aneurysm or dissection. Lungs: Subsegmental atelectasis in the lung bases. No evidence of focal airspace infiltrate or congestive pulmonary edema. Few calcified pulmonary granulomata consistent with chronic sequelae of prior granulomatous disease. No non-calcified pulmonary nodules. Pleural spaces: Small right pleural effusion and trace left pleural effusion. No pneumothorax. Heart: Biatrial enlargement suggestive of diastolic heart dysfunction. No pericardial effusion. Aortic valve leaflet calcifications. Coronary arteries: Calcific coronary artery disease with post-operative changes of prior CABG. Lymph nodes: Calcified mediastinal lymph nodes consistent with chronic sequelae of prior granulomatous disease. Multiple mildly enlarged cardiophrenic lymph nodes concerning for metastatic disease. Liver: Multiple hypoattenuating lesions in the liver, new since 02/14/2024 CT. Pancreas: Peripancreatic fat stranding noted in the upper abdomen, concerning for acute pancreatitis. Ill-defined area in the mid pancreatic body with heterogeneous attenuation and loss of glandular lobulation, suboptimally evaluated due to contrast bolus timing. Bones/joints: No acute osseous abnormality. Soft tissues: Unremarkable. IMPRESSION: 1. No evidence of pulmonary emboli through the level of the segmental pulmonary arteries. Technically inadequate study for definitive exclusion of subsegmental pulmonary emboli. 2. Small right pleural effusion and trace left pleural effusion. No evidence of acute airspace disease. 3. Peripancreatic fat stranding noted in the upper abdomen, concerning for acute pancreatitis. 4. Ill-defined area in the mid pancreatic body with heterogeneous attenuation and loss of glandular lobulation, suboptimally evaluated due to contrast bolus timing. Findings are indeterminate whether representing a pancreatic neoplasm, edema or complication of pancreatitis such as necrosis. Recommend dedicated CT abdomen pelvis with contrast for better evaluation. 5. Multiple hypoattenuating lesions in the liver, new since 02/14/2024 CT. Findings consistent with metastatic disease. 6. Multiple mildly enlarged cardiophrenic lymph nodes concerning for metastatic disease. 7. Biatrial enlargement suggestive of diastolic heart dysfunction. 8. Additional chronic ancillary findings are detailed above.
[2024-12-09 16:06] LABS: Thyroid Stimulating Hormone 1.82 uIU/mL (0.465-4.68)
[2024-12-09] MEDS: 0.9 % SODIUM CHLORIDE 50 ML VIAL IV (16:32)
[2024-12-09] MEDS: SODIUM CHLORIDE 0.9% 10ML SYR (RAD ONLY) 10 ML IV ×2 (16:32→18:22)
[2024-12-09] MEDS: IOPAMIDOL-370 (76%);100ML BOTTLE 70 ML IV (16:32)
--- NOTE | 2024-12-09 17:05 | PC.NURSE ---
I spoke with Scarlett in radiology inquiring about the pts scans. They are not opening for to view
--- NOTE | 2024-12-09 18:12 | CT_ITS ---
PROCEDURE INFORMATION: Exam: CT Abdomen And Pelvis With Contrast Exam date and time: 12/09/2024 6:22 PM Age: 78 years old Clinical indication: Abnormal findings; Abnormal radiologic finding of the abdomen; Radiologic exam and body structure: Abnormal CT chest, concerining abd findings; Additional info: F/u abnormal CT chest, concerning abd findings TECHNIQUE: Imaging protocol: Computed tomography of the abdomen and pelvis with contrast. Radiation optimization: All CT scans at this facility use at least one of these dose optimization techniques: automated exposure control; mA and/or kV adjustment per patient size (includes targeted exams where dose is matched to clinical indication); or iterative reconstruction. Contrast material: ISOVUE; Contrast volume: 75 ml; Contrast route: IV; COMPARISON: CT ABDOMEN PELVIS WO CON 02/14/2024 2:56 PM FINDINGS: Lungs: Interstitial prominence. Subtle Keiry B-lines. Pleural spaces: Small right pleural effusion. No pneumothorax. Liver: Multifocal, poorly defined hypodense lesions throughout liver. Gallbladder and biliary ducts: Normal. No calcified stones. No ductal dilation. Pancreas: Poorly defined hypodense pancreatic head mass measuring 2.1 x 2.0 cm with downstream pancreatic ductal dilatation and pancreatic parenchymal atrophy. Spleen: Normal. No splenomegaly. Adrenal glands: Normal. No mass. Kidneys and ureters: Similar left renal cyst. No nephroureterolithiasis. Stomach and bowel: Sigmoid colonic diverticula without pericolonic fat stranding. Nonobstructive pattern. Appendix: No evidence of appendicitis. Intraperitoneal space: Unremarkable. No free air. No significant fluid collection. Vasculature: Atherosclerotic calcification of aortoiliac arteries. No aneurysm. Lymph nodes: Periportal and peripancreatic lymph nodes measuring up to 1.6 x 1.1 cm. Urinary bladder: Irregular urinary bladder wall thickening without pericystic fat stranding. Reproductive: Enlarged prostate. Bones/joints: Chronic L2 vertebral body height loss with bony retropulsion. No acute osseous findings. Soft tissues: Unremarkable. IMPRESSION: 1. Pancreatic head mass with secondary ductal dilatation, parenchymal atrophy, multifocal hepatic metastases and locoregional lymphadenopathy. 2. Chronic urinary bladder wall thickening without cystitis likely reflecting prostatism. 3. Sigmoid colonic diverticulosis. 4. Probable mild pulmonary edema with pleural effusion. COMMENTS: Consistent with the [employer]'s Incidental Findings Committee white paper (J Am Herb Radiol 2018): Any incidental renal lesion less than 1 cm or classified as too small to characterize, or any incidental cystic renal lesion characterized as simple-appearing, is likely benign. No follow-up imaging is recommended for these lesions per consensus recommendations based on imaging criteria.
[2024-12-09 18:24] LABS: Lipase 173 U/L (23-300)
--- NOTE | 2024-12-09 18:49 | PC.NURSE ---
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
[2024-12-09] MEDS: BUMETANIDE 1MG/4ML VIAL 1 MG IV (19:02)
--- NOTE | 2024-12-09 19:18 | EXP.HP ---
History of Present Illness *Admission Date: 12/09/24 *Reason for visit:: Generalized weakness *History of present illness: Patient is a 78-year-old male with past medical history of diabetes mellitus, CAD, hypertension hyperlipidemia who presents to the hospital due to generalized weakness. Patient mentions he can feel rattling in his chest when he takes breathing, he also has dyspnea on exertion. 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 Patient otherwise denied fevers chills diarrhea constipation dysuria. On further evaluation in the emergency department patient was found to have proBNP 1100, pulmonary edema. [facility] Disclaimer: The information contained in this section may have been updated after the patient was seen, as this information can be updated by other users. 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 occupational exposures/hazards: No caffeine: Yes Have you lived/traveled outside [place] in past 30 days?: No Contact w/someone who lives/traveled outside [place] past 30 days?: No Exposure to someone with infectious disease in past 14 days?: No Do you have a fever (greater than 100.4 F or 38 C)?: No Have you tested positive for COVID-19?: No Exposed to someone with COVID-19 in past 14 days?: No Do you have a sore throat?: No Do you have a cough?: No Do you have any weakness?: No Are you experiencing any nausea/vomitting?: No Do you have any diarrhea?: No Are you experiencing any unusual bleeding?: No Do you have any muscle aches/pain?: No Do you have any abdominal pain?: No Are you experiencing loss of taste or smell?: No Other Medical History Have you received the Flu Vaccine for this season: Yes Have you received the Pneumonia Vaccine: No Review of Systems Review of Systems Review of systems:: pertinent systems reviewed and negative unless documented below Meds Home Medications and Allergies Home Medications ?Medication ?Instructions ?Recorded ?Confirmed ?Type glimepiride 2 mg tablet 2 mg PO DAILY Diabetes 07/14/17 12/09/24 History esomeprazole magnesium 20 mg 20 mg PO DAILY acid reflux 07/22/17 12/09/24 History tablet,delayed release aspirin 325 mg tablet 650 mg PO BID heart health 12/26/23 12/09/24 History atorvastatin 80 mg tablet 80 mg PO HS 12/09/24 12/09/24 History metoprolol tartrate 25 mg tablet 25 mg PO DAILY 12/09/24 12/09/24 History ramipril 5 mg capsule 5 mg PO DAILY 12/09/24 12/09/24 History New Prescriptions to Start Prescriptions: Allergies Allergy/AdvReac Type Severity Reaction Status Date / Time venom-wasp Allergy Unknown ALLERGY Verified 11/30/24 08:22 bee venom protein (honey bee) Allergy Unknown Verified 11/30/24 08:22 allergy reaction Exam Data for Last 24 hours Vital signs and Labs for Last 24 Hours: Temp Pulse Resp BP Pulse Ox O2 Del Method 98.4 F 79 17 126/61 98 Room Air 12/09/24 15:09 12/09/24 19:16 12/09/24 19:16 12/09/24 19:16 12/09/24 19:16 12/09/24 19:00 Laboratory Results - last 24 hr 12/09/24 15:10: WBC 11.1 H, RBC 5.22, Hgb 14.3, Hct 43.8, MCV 83.9, MCH 27.4, MCHC 32.6, RDW 12.8, Plt Count 220, MPV 10.6 H, Neut % (Auto) 74.1, Lymph % (Auto) 7.0 L, [place] % (Auto) 11.9 H, Eos % (Auto) 5.8, Baso % (Auto) 0.8, Neut # (Auto) 8.2 H, Lymph # (Auto) 0.8, [place] # (Auto) 1.3 H, Eos # (Auto) 0.6 H, Baso # (Auto) 0.1, D-Dimer 1.18 H, Sodium 131 L, Potassium 3.7, Chloride 93 L, Carbon Dioxide 29, Anion Gap 12.7, BUN 12, Creatinine 0.60 L, Estimated Creat Clear 73, Estimated GFR 130, Est GFR ( Amer) 158, Glucose 381 H, Calcium 9.4, Magnesium 1.9, Total Bilirubin 1.1, AST 32, ALT 27, Alkaline Phosphatase 176 H, Troponin I < 0.01, NT-Pro-B Natriuret Pep 1140 H, Total Protein 7.6, Albumin 4.4, Globulin 3.2, Albumin/Globulin Ratio 1.4, Lipase 173, TSH 1.82 12/09/24 15:40: SARS-CoV-2 (PCR) Not detected, Influenza A Untype (PCR) Not detected, Influenza Type B (PCR) Not detected I & O for Last 24 hours: Intake & Output 12/06/24 12/07/24 12/08/24 12/09/24 23:59 23:59 23:59 23:59 Weight 85.275 kg Constitutional Constitutional: no acute distress *Routine HEENT Exam Head: Present normocephalic Eye: Present EOMI and PERRL ENT: Present mucous membranes moist *Routine Neck Exam Neck: Present supple; Absent lymphadenopathy *Routine Respiratory Exam Respiratory: Present CTA bilaterally *Routine Cardiovascular Exam Cardiovascular: Present RRR *Routine Abdominal Exam Abdominal: Present soft and normoactive bowel sounds; Absent tenderness *Routine Rectal Exam Rectal:: deferred *Routine Genitalia Exam Genitalia:: deferred *Routine Extremities Exam Extremities: Absent cyanosis, clubbing or edema *Routine Skin Exam Skin: Present warm; Absent rash *Routine Neurological Exam Neurological: Present alert and oriented X3 Assessment and Plan *Assessment and plan (1) Heart failure: Status: Acute Category: Medical Code(s): I50.9 - Heart failure, unspecified (2) Generalized weakness: Status: Acute Category: Medical Code(s): R53.1 - Weakness (3) 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 Patient mentions he can feel rattling in his chest when he takes breathing, he also has dyspnea on exertion. 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 Patient otherwise denied fevers chills diarrhea constipation dysuria. On further evaluation in the emergency department patient was found to have proBNP 1100, pulmonary edema. Assessment and plan Acute CHF Dyspnea on exertion Generalized weakness likely secondary to CHF Start Bumex 1 mg twice daily Consult cardiology BNP 1100 Check echocardiogram Mass in head of pancrease CT abd pelvis Pancreatic head mass with secondary ductal dilatation,parenchymal atrophy, multifocal hepatic metastases and locoregional lymphadenopathy. follow up with oncology as OP Diabetes mellitus Order insulin sliding scale Hypertension Hyperlipidemia - Resume home atorvastatin, metoprolol, ramipril DVT prophylaxis-heparin subcutaneous
--- NOTE | 2024-12-09 19:29 | PC.NURSE ---
Report given to Darline SANDERS on the floor.
[2024-12-09 20:41] LABS: Hepatitis C Ab Qual. W/ RFX NEGATIVE (Negative)
[2024-12-09] MEDS: HEPARIN SODIUM 5,000 UNIT/ML VIAL 5000 UNIT SUBCUT (21:09)
--- NOTE | 2024-12-09 22:07 | PC.NURSE ---
pt dumped urine before I could look at amount.
[2024-12-09 22:41] LABS: Troponin I < 0.01 ng/ml (0.00-0.034)
[2024-12-10] VITALS: BP 123/85; PULSE 78; PULSE 80; RESP 16; TEMP 36.8; O2SAT 95
[2024-12-10 04:00] VITALS: BP 120/60; PULSE 51; RESP 16; TEMP 36.9; O2SAT 94; BMI 24.3
[2024-12-10 05:46] VITALS: PULSE 60
--- NOTE | 2024-12-10 06:29 | CA_ITS ---
APPROVED REPORT EXAM: Comprehensive 2D, Doppler, and color-flow Echocardiogram Bookkeeper Receptionist: Pauline Aguilar, RCS, RVS Ht: 5 ft 10 in Wt: 173lbs BSA: 1.96 BP: 126/61 mmHg Indications: CHF, Weakness, Weight loss, CAD-CABG-20 y/ago, Ex-smoker, HTN, HLD, DM 2D Dimensions LVDd 4.03 cm LVEF (Visual) 50.10 % LVDs 3.02 cm LVEF (Dutton's) 62.40 % Aortic Root 2.80 cm LV Volume 97.90 mL Left Atrium 3.97 cm LV Volume Index 49.298017 mL/m2 M: 34 - 74 RVID Base (AP4) 3.95 cm (M/F) 2.5-4.1 LA Volume 45.80 mL LVOT 1.72 cm (M/F) 1.5-2.5 LA Volume Index 23.126996 mL/m2 (M/F) 16-34 EF AP4 57.70 % EF AP2 67.2 % EF BP 62.4 % GL Strain -20.7 % M-Mode Dimensions RVDd 2.08 cm (0.9-2.6) LVDd 4.03 cm (3.5-5.7) Ao Diam 3.20 cm (2.0-3.7) LVDs 3.34 cm (3.5-5.7) IVSd 1.17 cm (0.6-1.1) PWd 1.21 cm (0.6-1.1) EF (Teich) 61.60% FS 30.50% EDV (Teich) 118.20 mL TAPSE 1.13 (<1.7) ESV (Teich) 45.40 mL LV Diastology E Decel Time 281 (160-240 msec) E/A Ratio 0.98 MED E' 6.8 (>= 7 cm/sec) MED A' 9.60 cm/s E'/MED E' Ratio 8.25 (<= 14) LAT E' 11.5 (>= 10 cm/sec) LAT A' 11.80 cm/s E/LAT E' Ratio 4.88 (<= 14) Aortic Valve LVOT Max 99.0 (70-110 cm/s) OPAL Index 1.17 cm2/m2 LVOT VTI 22.10 cm AoV Peak Ananth. 108.0 (50-130 cm/s) AO Mean GR. 2.30 (<5 mmHg) AO VTI 22.5 (18-25 cm) OPAL (VTI) 2.29 (2.5-4.5 cm2) Mitral Valve MV E Max Ananth. 56.0 (40-130 cm/s) MV A Velocity 57.0 (40-130 cm/s) E/A Ratio 0.98 MV Decel. Time 281 (160-240 ms) Left Ventricle The left ventricle is normal size. The left ventricular systolic function is normal. The left ventricular ejection fraction is within the normal range. There is increased LV wall thickness. There is normal LV segmental wall motion. The left ventricular diastolic function is normal. LVEF is 55%. Right Ventricle The right ventricle is mildly dilated. The right ventricular systolic function is normal. Atria The left atrium is mildly dilated. The right atrium is mildly dilated. There is no Doppler evidence of interatrial shunt. Aortic Valve The aortic valve is mildly thickened. There is no aortic valvular stenosis. No aortic regurgitation. Mitral Valve The mitral valve is normal in structure. No evidence of mitral valve stenosis. Trace mitral regurgitation. Tricuspid Valve Tricuspid valve is grossly normal in structure and function. Trace tricuspid regurgitation. There is insufficient TR jet to estimate RVSP. Pulmonic Valve The pulmonary valve is normal in structure. Trace pulmonic regurgitation. Great Vessels The aortic root is normal in size. IVC is normal in size and collapses >50% with inspiration. Pericardium There is no pericardial effusion. Other Information Study Quality: Fair Conclusion Normal biventricular systolic function. Mild RV dilation. Mild biatrial dilation. No significant valvular stenosis or regurgitation. Electronically signed by : Chela Pradhan MD 12/10/2024 13:25:23
[2024-12-10 06:34] LABS: Hematocrit 39.5 % (42.0-52.0); Immature Granulocytes % 0.5 %; Mean Corpuscular HGB Conc 32.4 g/dL (31.8-35.4); Mean Corpuscular Hemoglobin 26.9 pg (27.0-31.2); Mean Corpuscular Volume 83.2 fl (80-94); Nucleated Red Blood Cells % 0 %; Platelet Count 179 K/mm3 (142-424); Red Blood Count 4.75 M/mm3 (4.60-6.20); Red Cell Distribution Width-SD 38.7 fL; White Blood Count 8.1 K/mm3 (4.8-10.8)
[2024-12-10 06:50] LABS: INR 1.14 (0.9-1.1); Prothrombin Time 12.5 seconds (10.1-12.5)
[2024-12-10 07:01] LABS: POC Glucose,Bedside 228 (70-110)
[2024-12-10 07:03] LABS: Alanine Aminotransferase 17 U/L (12-78); Albumin Level 3.0 g/dl (3.5-5.0); Albumin/Globulin Ratio 1.2 (1.1-1.8); Alkaline Phosphatase 127 U/L (38-126); Anion Gap 9.0 mEq/L (5-15); Aspartate Amino Transferase 23 U/L (17-59); Bilirubin,Total 0.7 mg/dl (0.2-1.3); Blood Urea Nitrogen 8 mg/dl (9-20); Calcium 8.4 mg/dl (8.4-10.2); Carbon Dioxide 28 mmol/L (22.0-30.0); Chloride 99 mmol/L (98-107); Creatinine Clearance Estimated 68 mL/min (50-200); Creatinine,Serum 0.50 mg/dl (0.66-1.25); Estimated Glomerular Filt Rate 161 ml/min (>60); GFR (African American) 195 ML/MIN (>60); Globulin 2.5 g/dL (1.3-3.2); Glucose 247 mg/dl (74-100); Magnesium 1.9 mg/dl (1.6-2.3); Sodium 133 mmol/L (136-145); Total Protein,Serum 5.5 g/dl (6.3-8.2)
[2024-12-10] MEDS: humaLOG 100 UNITS/ML 10ML VIAL (SSI) SUBCUT ×2 (07:16→10:38)
[2024-12-10 07:51] LABS: Potassium 3.0 mmoL/L (3.5-5.1)
[2024-12-10 07:59] LABS: Hemoglobin 12.8 g/dL (14.1-18.0)
[2024-12-10 08:00] VITALS: BP 125/55; PULSE 81; RESP 14; TEMP 36.7; O2SAT 98
--- NOTE | 2024-12-10 08:10 | HMH.PHAINT1 ---
Pharmacy Intervention Comments: HOME MEDICATION LIST VERIFIED USING LIST FROM OUTPATIENT PHARMACY AND PT INTERVIEW
[2024-12-10] MEDS: METOPROLOL TARTRATE 25MG TABLET 25 MG PO (09:15)
[2024-12-10] MEDS: BUMETANIDE 1MG/4ML VIAL 1 MG IV (09:15)
[2024-12-10] MEDS: HEPARIN SODIUM 5,000 UNIT/ML VIAL 5000 UNIT SUBCUT ×2 (09:27→13:09)
[2024-12-10] MEDS: POTASSIUM CHLORIDE 20MEQ TAB 40 MEQ PO ×2 (10:29→13:09)
[2024-12-10 10:44] LABS: POC Glucose,Bedside 181 (70-110)
--- NOTE | 2024-12-10 12:11 | EXP.DC.SUM ---
General Admission date:: 12/09/24 Discharge date: 12/10/24 HPI HPI HPI: Patient is a 78-year-old male with past medical history of diabetes mellitus, CAD, hypertension hyperlipidemia who presents to the hospital due to generalized weakness. Patient mentions he can feel rattling in his chest when he takes breathing, he also has dyspnea on exertion. 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 Patient otherwise denied fevers chills diarrhea constipation dysuria. On further evaluation in the emergency department patient was found to have proBNP 1100, pulmonary edema. Hospital Course Hospital Course Hospital Course: Patient is a 78-year-old male with past medical history of diabetes mellitus, CAD, hypertension hyperlipidemia who presents to the hospital due to generalized weakness. Remote history of CABG. Patient mentions he can feel rattling in his chest when he takes breathing, he also has dyspnea on exertion. 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 Patient otherwise denied fevers chills diarrhea constipation dysuria. Does complain of some dyspepsia and unintentional weight loss. On further evaluation in the emergency department patient was found to have proBNP 1100, pulmonary edema. Workup in the ER concerning for abnormalities on imaging of abdomen and HFpEF exacerbation. Admitted to medicine for further management. Problems addressed as follows: History of coronary artery disease History of CABG 20 years ago Acute on chronic HFpEF BNP elevated on arrival to 1100. EKG obtained in the ED negative for STEMI. Serial troponins were negative. Continue home aspirin 81 mg daily and initiate Lipitor 80 mg daily. Would benefit from outpatient ischemic eval. Was noted to have some pulmonary edema with pleural effusions on CT. Initiated on diuretics with good response. Will continue Lasix 40 mg daily. Continue remainder of meds for heart failure including metoprolol succinate 25 mg daily and ramipril 5 mg daily. Stable on room air. Feeling somewhat better. -Of note, echo obtained during admission shows shows normal biventricular systolic function with mild RV dilation and mild biatrial dilation. No significant valvular stenosis or regurg noted Pancreatic mass Concern for metastatic disease CT of abdomen showed diffuse lesions in the liver and moderately sized pancreatic head mass. Did have some secondary ductal dilatation, parenchymal atrophy, multifocal hepatic metastases with local regional lymphadenopathy. Liver enzymes were normal during admission. Lipase normal. Does complain of some belching and hiccups and early satiety. CEA 19-9 elevated at 58. Patient referred to GI and oncology as an outpatient for further evaluation and workup of suspected pancreatic cancer. Total time spent on discharge 32 minutes in counseling, discussion with subspecialist, documentation, chart review, and direct care with patient. Exam Data for Last 24 hours Vital signs and Labs for Last 24 Hours: Temp Pulse Resp BP Pulse Ox O2 Del Method 98.0 F 81 14 125/55 L 98 Room Air 12/10/24 08:00 12/10/24 08:00 12/10/24 08:00 12/10/24 08:00 12/10/24 08:00 12/10/24 11:00 Laboratory Results - last 24 hr 12/09/24 15:10: WBC 11.1 H, RBC 5.22, Hgb 14.3, Hct 43.8, MCV 83.9, MCH 27.4, MCHC 32.6, RDW 12.8, Plt Count 220, MPV 10.6 H, Neut % (Auto) 74.1, Lymph % (Auto) 7.0 L, [place] % (Auto) 11.9 H, Eos % (Auto) 5.8, Baso % (Auto) 0.8, Neut # (Auto) 8.2 H, Lymph # (Auto) 0.8, [place] # (Auto) 1.3 H, Eos # (Auto) 0.6 H, Baso # (Auto) 0.1, D-Dimer 1.18 H, Sodium 131 L, Potassium 3.7, Chloride 93 L, Carbon Dioxide 29, Anion Gap 12.7, BUN 12, Creatinine 0.60 L, Estimated Creat Clear 73, Estimated GFR 130, Est GFR ( Amer) 158, Glucose 381 H, Calcium 9.4, Magnesium 1.9, Total Bilirubin 1.1, AST 32, ALT 27, Alkaline Phosphatase 176 H, Troponin I < 0.01, NT-Pro-B Natriuret Pep 1140 H, Total Protein 7.6, Albumin 4.4, Globulin 3.2, Albumin/Globulin Ratio 1.4, Lipase 173, TSH 1.82, HCV Ab GA w/Rflx PCR Qn Negative, HIV Ag/Ab Combo Qual Negative 12/09/24 15:40: SARS-CoV-2 (PCR) Not detected, Influenza A Untype (PCR) Not detected, Influenza Type B (PCR) Not detected 12/09/24 21:58: Troponin I < 0.01 12/10/24 05:23: WBC 8.1 D, RBC 4.75, Hgb 12.8 L D, Hct 39.5 L, MCV 83.2, MCH 26.9 L, MCHC 32.4, RDW 12.6, Plt Count 179, MPV 10.9 H, Neut % (Auto) 67.7, Lymph % (Auto) 10.2, [place] % (Auto) 12.5 H, Eos % (Auto) 8.1, Baso % (Auto) 1.0, Neut # (Auto) 5.5, Lymph # (Auto) 0.8, [place] # (Auto) 1.0, Eos # (Auto) 0.7 H, Baso # (Auto) 0.1, PT 12.5, INR 1.14 H, Sodium 133 L, Potassium 3.0 L, Chloride 99, Carbon Dioxide 28, Anion Gap 9.0, BUN 8 L D, Creatinine 0.50 L, Estimated Creat Clear 68, Estimated GFR 161, Est GFR ( Amer) 195 D, Glucose 247 H D, Calcium 8.4, Magnesium 1.9, Total Bilirubin 0.7, AST 23 D, ALT 17 D, Alkaline Phosphatase 127 H, Total Protein 5.5 L D, Albumin 3.0 L D, Globulin 2.5, Albumin/Globulin Ratio 1.2 12/10/24 06:44: POC Glucose 228 H 12/10/24 10:33: POC Glucose 181 H I & O for Last 24 hours: Intake & Output 12/07/24 12/08/24 12/09/24 12/10/24 23:59 23:59 23:59 23:59 Intake Total 240 / 240 Output Total 0 / 0 300 / 300 Balance 0 / 240 -60 / -60 Weight 78.727 kg 78.698 kg Constitutional Constitutional: no acute distress, average body habitus, chronically ill appearing and cooperative *Routine HEENT Exam Head: Present normocephalic Eye: Present EOMI and PERRL ENT: Present mucous membranes moist *Routine Neck Exam Neck: Present supple; Absent lymphadenopathy *Routine Respiratory Exam Respiratory: Present CTA bilaterally; Absent rhonchi, wheezes or crackles *Routine Cardiovascular Exam Cardiovascular: Present RRR *Routine Abdominal Exam Abdominal: Present soft and normoactive bowel sounds; Absent tenderness *Routine Rectal Exam Patient deferred: visual exam *Routine Exam Patient deferred: penile exam *Routine Extremities Exam Extremities: Absent cyanosis, clubbing or edema *Routine Skin Exam Skin: Present pallor and warm; Absent rash *Routine Neurological Exam Neurological: Present alert, oriented X3 and moving all extremities; Absent altered mental status Results Data Completed and Pending Labs on day of discharge: Labs from last 24 hours 12/10/24 12/10/24 12/10/24 10:33 06:44 05:23 WBC 8.1 D RBC 4.75 Hgb 12.8 L D Hct 39.5 L MCV 83.2 MCH 26.9 L MCHC 32.4 RDW 12.6 Plt Count 179 MPV 10.9 H Neut % (Auto) 67.7 Lymph % (Auto) 10.2 [place] % (Auto) 12.5 H Eos % (Auto) 8.1 Baso % (Auto) 1.0 Neut # (Auto) 5.5 Lymph # (Auto) 0.8 [place] # (Auto) 1.0 Eos # (Auto) 0.7 H Baso # (Auto) 0.1 PT 12.5 INR 1.14 H D-Dimer Sodium 133 L Potassium 3.0 L Chloride 99 Carbon Dioxide 28 Anion Gap 9.0 BUN 8 L D Creatinine 0.50 L Estimated Creat Clear 68 Estimated GFR 161 Est GFR ( Amer) 195 D Glucose 247 H D POC Glucose 181 H 228 H Calcium 8.4 Magnesium 1.9 Total Bilirubin 0.7 AST 23 D ALT 17 D Alkaline Phosphatase 127 H Troponin I NT-Pro-B Natriuret Pep Total Protein 5.5 L D Albumin 3.0 L D Globulin 2.5 Albumin/Globulin Ratio 1.2 Lipase TSH SARS-CoV-2 (PCR) HCV Ab GA w/Rflx PCR Qn HIV Ag/Ab Combo Qual Influenza A Untype (PCR) Influenza Type B (PCR) 12/09/24 12/09/24 12/09/24 21:58 15:40 15:10 WBC 11.1 H RBC 5.22 Hgb 14.3 Hct 43.8 MCV 83.9 MCH 27.4 MCHC 32.6 RDW 12.8 Plt Count 220 MPV 10.6 H Neut % (Auto) 74.1 Lymph % (Auto) 7.0 L [place] % (Auto) 11.9 H Eos % (Auto) 5.8 Baso % (Auto) 0.8 Neut # (Auto) 8.2 H Lymph # (Auto) 0.8 [place] # (Auto) 1.3 H Eos # (Auto) 0.6 H Baso # (Auto) 0.1 PT INR D-Dimer 1.18 H Sodium 131 L Potassium 3.7 Chloride 93 L Carbon Dioxide 29 Anion Gap 12.7 BUN 12 Creatinine 0.60 L Estimated Creat Clear 73 Estimated GFR 130 Est GFR ( Amer) 158 Glucose 381 H POC Glucose Calcium 9.4 Magnesium 1.9 Total Bilirubin 1.1 AST 32 ALT 27 Alkaline Phosphatase 176 H Troponin I < 0.01 < 0.01 NT-Pro-B Natriuret Pep 1140 H Total Protein 7.6 Albumin 4.4 Globulin 3.2 Albumin/Globulin Ratio 1.4 Lipase 173 TSH 1.82 SARS-CoV-2 (PCR) Not detected HCV Ab GA w/Rflx PCR Qn Negative HIV Ag/Ab Combo Qual Negative Influenza A Untype (PCR) Not detected Influenza Type B (PCR) Not detected DS: Diagnosis Discharge Diagnosis (1) Heart failure: Status: Acute Code(s): I50.9 - Heart failure, unspecified (2) Generalized weakness: Status: Acute Code(s): R53.1 - Weakness (3) 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 Code(s): E11.42 - Type 2 diabetes mellitus with diabetic polyneuropathy (4) Hyperlipidemia: Status: Chronic Code(s): E78.5 - Hyperlipidemia, unspecified (5) Hypertension: Status: Chronic Code(s): I10 - Essential (primary) hypertension (6) Pancreatic mass: Status: Acute Code(s): K86.89 - Other specified diseases of pancreas Meds Home Medications and Allergies Home Medications ?Medication ?Instructions ?Recorded ?Confirmed ?Type esomeprazole magnesium 20 mg 20 mg PO DAILY acid reflux 07/22/17 12/09/24 History tablet,delayed release aspirin 325 mg tablet 650 mg PO DAILY heart health 12/26/23 12/10/24 History atorvastatin 80 mg tablet 80 mg PO HS 12/09/24 12/09/24 History metoprolol tartrate 25 mg tablet 25 mg PO DAILY 12/09/24 12/09/24 History ramipril 5 mg capsule 5 mg PO DAILY 12/09/24 12/09/24 History furosemide 40 mg tablet (Lasix) 40 mg PO DAILY #30 tabs 12/10/24 Rx potassium chloride 20 mEq 40 meq (2 x 20 mEq) PO DAILY 30 12/10/24 Rx tablet,extended days #60 tabs release(part/cryst) (Klor-Con M) New Prescriptions to Start Prescriptions: furosemide [Lasix] Bayron Conway potassium chloride [Klor-Con M20] Bayron Conway Allergies Allergy/AdvReac Type Severity Reaction Status Date / Time venom-wasp Allergy Unknown ALLERGY Verified 11/30/24 08:22 bee venom protein (honey bee) Allergy Unknown Verified 11/30/24 08:22 allergy reaction Discharge Plan Disposition Patient Disposition: Home, Self-Care Condition: Fair Follow up Plan Follow up with: Sandra Huntley APRN [Nurse Practitioner, Cardiology] - 12/17/24 1:30 pm Frank Trevino MD [Primary Care Provider, Medical] - Enter time for follow up Referral Note: Please call for follow up appointment Selvin Begum II, MD [Staff Physician, Gastroenterology] - 01/12/25 1:30 pm Ezra Berg MD [Staff Physician, Oncology] - 12/16/24 1:15 pm Prescriptions/Medication Reconciliation: New potassium chloride [Klor-Con M20] 20 mEq Tablet,Er Particles/Crystals 40 meq PO DAILY 30 Days Qty: 60 0RF furosemide [Lasix] 40 mg tablet 40 mg PO DAILY Qty: 30 0RF Continued aspirin 325 mg tablet 650 mg PO DAILY Patient Comments: Takes at bedtime esomeprazole magnesium 20 MG tablet,delayed release (DR/EC) 20 mg PO DAILY atorvastatin 80 mg tablet 80 mg PO HS ramipril 5 mg capsule 5 mg PO DAILY metoprolol tartrate 25 mg tablet 25 mg PO DAILY Problem Reconciliation Problems Reviewed?: Yes Patient Discharge Instructions ACTIVITY: Continue current activity DIET: continue same diet Patient Instructions: DI for Pleural Effusion, Stop Light Heart Failure Print Language: Tuvaluan Providers Primary Care Provider: Frank Trevino Admit Provider: Bayron Conway Attending Provider: Bayron Conwya
--- NOTE | 2024-12-10 13:19 | EXP.CARD.CON ---
History of Present Illness History of Present Illness Consult date: 12/10/24 Requesting physician: Bayron Conway Chief complaint: weakness History of present illness: Hospitalist Note: Patient is a 78-year-old male with past medical history of diabetes mellitus, CAD, hypertension hyperlipidemia who presents to the hospital due to generalized weakness. Patient mentions he can feel rattling in his chest when he takes breathing, he also has dyspnea on exertion. 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 Patient otherwise denied fevers chills diarrhea constipation dysuria. On further evaluation in the emergency department patient was found to have proBNP 1100, pulmonary edema. Cardiology note: This is a 78-year-old male with a past medical history of coronary artery disease status post CABG 20 years ago who presented to emergency department with complaints of generalized weakness and dyspnea on exertion. Of note he has not had any cardiology follow-up since his CABG. On presentation to emergency department EKG sinus rhythm with occasional supraventricular complexes rate of 71 with diffuse T wave inversions noted. Serial troponins are negative. BNP on admission was 1140. Chest CTA was negative for PE but did show a small right pleural effusion and trace left pleural effusion. Also noted were findings concerning for possible pancreatic neoplasm with metastatic disease. Please see official chest CTA report. Patient was ultimately admitted for volume overload and diuresed with Bumex 1 mg IV twice daily. Patient has diuresed well throughout the evening and this morning reports he is feeling much better. He reports his weakness and shortness of breath have improved. He is maintaining oxygen at 98% on room air. Echo shows normal biventricular systolic function with mild RV dilation and mild biatrial dilation. [facility] Disclaimer: The information contained in this section may have been updated after the patient was seen, as this information can be updated by other users. 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 occupational exposures/hazards: No caffeine: Yes Review of Systems Review of Systems Review of systems:: pertinent systems reviewed and negative unless documented below Constitutional Comments: weakness Exam Data for Last 24 hours Vital signs and Labs for Last 24 Hours: Temp Pulse Resp BP Pulse Ox O2 Del Method 98.0 F 81 14 125/55 L 98 Room Air 12/10/24 08:00 12/10/24 08:00 12/10/24 08:00 12/10/24 08:00 12/10/24 08:00 12/10/24 13:00 Laboratory Results - last 24 hr 12/09/24 15:10: WBC 11.1 H, RBC 5.22, Hgb 14.3, Hct 43.8, MCV 83.9, MCH 27.4, MCHC 32.6, RDW 12.8, Plt Count 220, MPV 10.6 H, Neut % (Auto) 74.1, Lymph % (Auto) 7.0 L, [place] % (Auto) 11.9 H, Eos % (Auto) 5.8, Baso % (Auto) 0.8, Neut # (Auto) 8.2 H, Lymph # (Auto) 0.8, [place] # (Auto) 1.3 H, Eos # (Auto) 0.6 H, Baso # (Auto) 0.1, D-Dimer 1.18 H, Sodium 131 L, Potassium 3.7, Chloride 93 L, Carbon Dioxide 29, Anion Gap 12.7, BUN 12, Creatinine 0.60 L, Estimated Creat Clear 73, Estimated GFR 130, Est GFR ( Amer) 158, Glucose 381 H, Calcium 9.4, Magnesium 1.9, Total Bilirubin 1.1, AST 32, ALT 27, Alkaline Phosphatase 176 H, Troponin I < 0.01, NT-Pro-B Natriuret Pep 1140 H, Total Protein 7.6, Albumin 4.4, Globulin 3.2, Albumin/Globulin Ratio 1.4, Lipase 173, TSH 1.82, HCV Ab GA w/Rflx PCR Qn Negative, HIV Ag/Ab Combo Qual Negative 12/09/24 15:40: SARS-CoV-2 (PCR) Not detected, Influenza A Untype (PCR) Not detected, Influenza Type B (PCR) Not detected 12/09/24 21:58: Troponin I < 0.01 12/10/24 05:23: WBC 8.1 D, RBC 4.75, Hgb 12.8 L D, Hct 39.5 L, MCV 83.2, MCH 26.9 L, MCHC 32.4, RDW 12.6, Plt Count 179, MPV 10.9 H, Neut % (Auto) 67.7, Lymph % (Auto) 10.2, [place] % (Auto) 12.5 H, Eos % (Auto) 8.1, Baso % (Auto) 1.0, Neut # (Auto) 5.5, Lymph # (Auto) 0.8, [place] # (Auto) 1.0, Eos # (Auto) 0.7 H, Baso # (Auto) 0.1, PT 12.5, INR 1.14 H, Sodium 133 L, Potassium 3.0 L, Chloride 99, Carbon Dioxide 28, Anion Gap 9.0, BUN 8 L D, Creatinine 0.50 L, Estimated Creat Clear 68, Estimated GFR 161, Est GFR ( Amer) 195 D, Glucose 247 H D, Calcium 8.4, Magnesium 1.9, Total Bilirubin 0.7, AST 23 D, ALT 17 D, Alkaline Phosphatase 127 H, Total Protein 5.5 L D, Albumin 3.0 L D, Globulin 2.5, Albumin/Globulin Ratio 1.2 12/10/24 06:44: POC Glucose 228 H 12/10/24 10:33: POC Glucose 181 H I & O for Last 24 hours: Intake & Output 12/07/24 12/08/24 12/09/24 12/10/24 23:59 23:59 23:59 23:59 Intake Total 240 / 240 Output Total 0 / 0 300 / 300 Balance 0 / 240 -60 / -60 Weight 173 lb 9 oz 173 lb 8 oz Constitutional Constitutional: no acute distress *Routine Respiratory Exam Respiratory: Present CTA bilaterally and symmetric chest movement *Routine Cardiovascular Exam Cardiovascular: Present RRR, Normal S1 and Normal S2 *Routine Abdominal Exam Abdominal: Present soft and normoactive bowel sounds; Absent tenderness *Routine Extremities Exam Extremities: Present full ROM and normal capillary refill; Absent edema *Routine Skin Exam Skin: Present intact, dry and warm Detailed Neck Exam: Thyroids Thyroid: Absent bruit Meds Home Medications and Allergies Home Medications ?Medication ?Instructions ?Recorded ?Confirmed ?Type esomeprazole magnesium 20 mg 20 mg PO DAILY acid reflux 07/22/17 12/09/24 History tablet,delayed release aspirin 325 mg tablet 650 mg PO DAILY heart health 12/26/23 12/10/24 History atorvastatin 80 mg tablet 80 mg PO HS 12/09/24 12/09/24 History metoprolol tartrate 25 mg tablet 25 mg PO DAILY 12/09/24 12/09/24 History ramipril 5 mg capsule 5 mg PO DAILY 12/09/24 12/09/24 History furosemide 40 mg tablet (Lasix) 40 mg PO DAILY #30 tabs 12/10/24 Rx potassium chloride 20 mEq 40 meq (2 x 20 mEq) PO DAILY 30 12/10/24 Rx tablet,extended days #60 tabs release(part/cryst) (Klor-Con M) New Prescriptions to Start Prescriptions: furosemide [Lasix] Bayron Conway potassium chloride [Klor-Con M20] Bayron Conway Allergies Allergy/AdvReac Type Severity Reaction Status Date / Time venom-wasp Allergy Unknown ALLERGY Verified 11/30/24 08:22 bee venom protein (honey bee) Allergy Unknown Verified 11/30/24 08:22 allergy reaction Assessment and Plan *Assessment and plan (1) CAD (coronary artery disease): Status: Acute Category: Medical Code(s): I25.10 - Atherosclerotic heart disease of [place] coronary artery without angina pectoris (2) Pancreatic mass: Status: Acute Category: Medical Code(s): K86.89 - Other specified diseases of pancreas (3) (HFpEF) heart failure with preserved ejection fraction: Status: Acute Category: Medical Code(s): I50.30 - Unspecified diastolic (congestive) heart failure (4) Generalized weakness: Status: Acute Category: Medical Code(s): R53.1 - Weakness (5) Dyspnea: Status: Acute Category: Medical Code(s): R06.00 - Dyspnea, unspecified (6) Pleural effusion: Status: Acute Category: Medical Code(s): J90 - Pleural effusion, not elsewhere classified Plan History of coronary artery disease History of CABG 20 years ago EKG negative for STEMI Serial troponins negative Continue aspirin 81 mg p.o. daily and atorvastatin 80 mg p.o. Outpatient ischemic evaluation recommended HFpEF Pulmonary edema pleural effusions noted on abdomen pelvis CT on admission Echo shows normal biventricular systolic function with mild RV dilation and mild biatrial dilation. No significant valvular stenosis or regurg noted Continue Lasix 40 mg p.o. daily Concern for pancreatic mass Concern for metastatic disease Defer to primary service and Dr. Berg on outpatient CV summary 12/10/2024: Patient is CV stable for discharge home. Please have patient follow-up in cardiology clinic in 1 week for reevaluation. Patient will need outpatient ischemic evaluation. Cardiac meds: Aspirin 81 mg p.o. daily Atorvastatin 80 mg p.o. daily Lasix 40 mg p.o. daily Metoprolol succinate 25 mg p.o. daily Ramipril 5 mg p.o. daily
[2024-12-11 08:17] LABS: CA 19-9 58 U/mL (0-35)
== END 2024-12-10 14:35 | disposition home or self-care (01) ==
LOC: ER 18:46 → 2ND 18:55
PROVIDERS: Admitting Provider Internal Medicine Adolescent Medicine; Emergency Provider Student in an Organized Health Care Education/Training Program; PCP Internal Medicine; Visit Provider Internal Medicine Adolescent Medicine
DX: I11.0 Hypertensive heart disease with heart failure (principal); I50.31 Acute diastolic (congestive) heart failure; E11.42 Type 2 diabetes mellitus with diabetic polyneuropathy; E78.5 Hyperlipidemia, unspecified; K86.89 Other specified diseases of pancreas; I25.10 Atherosclerotic heart disease of native coronary artery without angina pectoris; K57.30 Diverticulosis of large intestine without perforation or abscess without bleeding; R59.0 Localized enlarged lymph nodes; J90 Pleural effusion, not elsewhere classified; C22.9 Malignant neoplasm of liver, not specified as primary or secondary; Z91.030 Bee allergy status; Z91.038 Other insect allergy status; Z87.891 Personal history of nicotine dependence; Z95.1 Presence of aortocoronary bypass graft; Z79.82 Long term (current) use of aspirin; Z79.899 Other long term (current) drug therapy; Z79.84 Long term (current) use of oral hypoglycemic drugs
CPT/HCPCS: 36415; 71045; 71275; 74177; 80053; 82962; 83690; 83735; 83880; 84443; 84484; 85025; 85378; 85610; 86301; 86803; 87389; 87636; 93005; 93306; 96374; 99291; G0378; J1644; J1939; Q9967